=== PATIENT | male | born 1940 | race African-American/Black ===

== ENCOUNTER 2017-08-24 13:28 | Emergency (ER) | payer MEDICARE, SELFPAY | END 2017-08-24 14:29 | disposition home or self-care (01) | PROVIDERS: Emergency Provider Emergency Medicine; Family Provider Internal Medicine Adolescent Medicine; Visit Provider Emergency Medicine | DX: S20.211A Contusion of right front wall of thorax, initial encounter (principal); I10 Essential (primary) hypertension; F17.210 Nicotine dependence, cigarettes, uncomplicated; Z79.82 Long term (current) use of aspirin; W01.0XXA Fall on same level from slipping, tripping and stumbling without subsequent striking against object, initial encounter; Y93.01 Activity, walking, marching and hiking; Y92.89 Other specified places as the place of occurrence of the external cause | CPT/HCPCS: 71101; 99282 ==

== ENCOUNTER 2018-06-27 17:22 | Observation (INO) ==
[2018-06-27 18:15] LABS: Microscopic, Urine URINE MICROSCOPIC (MICROSCOPIC)
[2018-06-27 18:18] LABS: Appearance,Urine CLEAR (Clear); Bilirubin,Urine Negative (Negative); Blood, Urine Negative (Negative); Color,Urine YELLOW (Yellow); Glucose,Urine (UA) Negative (Negative); Ketones,Urine Negative (Negative); Leukocyte Esterase,Urine Negative (Negative); Protein,Urine Negative (Negative); Urobilinogen,Urine 0.2 EU/dl (0.2)
[2018-06-27 18:38] LABS: Bacteria,Urine 1+ /lpf; RBC,Urine Occasional #/hpf (0-3)
--- NOTE | 2018-06-27 19:07 | Emergency Department Note ---
ED Disposition Clinical Impression: Left inguinal hernia Cellulitis Qualifiers: Site of cellulitis: extremity Site of cellulitis of extremity: upper extremity Laterality: right Qualified Code(s): L03.113 - Cellulitis of right upper limb Disposition: Admitted as Observation Condition on Discharge: Fair Instructions: Cellulitis Referrals: Wilfred Rodriguez MD [Primary Care Provider] - Time of Disposition: 20:57 - Critical Care Critical Care Time: No Attestation: On 06/27/18, the high probability of a clinically significant, sudden or life threatening deterioration of the following system(s) required my full and direct attention, intervention and personal management. The time I documented below is in addition to time spent performing reported procedures but includes the following listed in this critical care notation. Medical Decision Making - Medical Records Medical records reviewed: Yes: I reviewed the patient's medical records. - Sergio Inquiry Pt receiving controlled substance: No Sergio was queried for this patient: No Vital Signs: 06/27/18 17:33 06/27/18 18:42 06/27/18 19:30 Temperature 98.6 F 97.5 F L Temperature Source Oral Oral Pulse Rate [Left Radial] 88 80 78 Respiratory Rate 18 18 18 Blood Pressure [Left Arm] 156/85 H 119/55 L 172/88 H Blood Pressure Mean [Left Arm] 108 76 116 Blood Pressure Source [Left Arm] Automatic Cuff Automatic Cuff Automatic Cuff Blood Pressure Position [Left Arm] Supine Sitting Supine 02 Sat by Pulse Oximetry 98 98 99 Oxygen Delivery Method Room Air Room Air Room Air 06/27/18 20:00 Temperature Temperature Source Pulse Rate [Left Radial] 74 Respiratory Rate 18 Blood Pressure [Left Arm] 175/81 H Blood Pressure Mean [Left Arm] 112 Blood Pressure Source [Left Arm] Automatic Cuff Blood Pressure Position [Left Arm] Supine 02 Sat by Pulse Oximetry 99 Oxygen Delivery Method Room Air - Lab Data Lab results reviewed: Yes: I reviewed the patient's lab results. Lab Results 06/27/18 18:05: Urine Color Yellow, Urine Appearance Clear, Urine pH 7.0, Ur Specific [place] 1.020, Urine Protein Negative, Urine Glucose (UA) Negative, Urine Ketones Negative, Urine Blood Negative, Urine Nitrate Negative, Urine Bilirubin Negative, Urine Urobilinogen 0.2, Ur Leukocyte Esterase Negative, Urine RBC Occasional, Urine WBC 5-10, Ur Squamous Epith Cells 3-5, Urine Bacteria 1+ 06/27/18 20:05: WBC 7.5, RBC 4.10 L, Hgb 13.1 L, Hct 40.4 L, MCV 98.5 H, MCH 31.8 H, MCHC 32.3, RDW 13.5, Plt Count 360, MPV 7.1 L, Neut % (Auto) 61.3, Lymph % (Auto) 21.0, [place] % (Auto) 5.4, Eos % (Auto) 11.8, Baso % (Auto) 0.4, Neut # (Auto) 4.6, Lymph # (Auto) 1.6, [place] # (Auto) 0.4, Eos # (Auto) 0.9 H, Baso # (Auto) 0.0 06/27/18 20:05: Sodium 134 L, Potassium 3.4 L, Chloride 98, Carbon Dioxide 30, Anion Gap 9.4, BUN 10 D, Creatinine 1.12, Estimated Creat Clear 82, Estimated GFR 63, Est GFR ( Amer) 77, Glucose 100, Calcium 8.8, Total Bilirubin 0.5, AST 15, ALT 12, Alkaline Phosphatase 114, Total Protein 9.4 H, Albumin 3.4, Globulin 6.0 H, Albumin/Globulin Ratio 0.6 L 06/27/18 20:05: Lactate 1.2 Result diagrams: 06/27/18 20:05 06/27/18 20:05 Orders (Tests/Meds): ED MEDICATIONS Generic Name Dose Route Start Last Admin Trade Name Freq PRN Reason Stop Dose Admin Sodium Chloride 1,000 mls @ 999 mls/hr 06/27/18 20:15 06/27/18 20:35 Sod Chlor 0.9% 1000ml Bag IV 06/27/18 21:15 999 mls/hr .[id number] GAYLE Administration ORDERS Category Date Time Status CT abdomen pelvis wo con Stat Cat Scan 06/27/18 19:05 Taken CRP [C-Reactive Protein] Stat Lab 06/27/18 20:46 Ordered Erythrocyte Sedimentation Rate Stat Lab 06/27/18 20:46 Ordered PSA Total+% Free Stat Lab 06/27/18 20:05 Received UA [Urinalysis and Microscopic] Stat Lab 06/27/18 18:05 Ordered Blood Culture Stat Micro 06/27/18 20:12 Ordered General Adult HPI - General Chief complaint: PAIN Stated complaint: Swelling in prostrate area Time Seen by Provider: 06/27/18 18:50 Mode of Arrival: Ambulatory Limitations: Physical Limitations Description of Symptoms (Recalled from ER Triage Doc. by RN): Patients reports that his testicles and penis are swollen. He has been unable to completely empty his bladder for several weeks. 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 Bender until he and then a couple of months later saw Dr. Gilliland and has not been back to see Dr. Gilliland since that time. Several months ago he started developing some sores in his right arm and he kept picking at those sores and now he comes in with the right arm in a sling mostly immobile with scabbed areas all the way up and down the arm and swelling of the hand but there is no increased heat. He comes into the hospital this evening because of not being ab le to completely empty his bladder for several weeks and also because he has a lot of swelling around his penis and testicles and he is not sure what is going on there is only surgery in the past was a right knee replacement several years ago and he does have a history of hypertension but on no medicines for it. He does not complain of a great deal of pain but it bothers him because of all the swelling in his groin and it makes it more difficult for him to pass all of his urine Onset (ago): month(s) Location: genitals, right, upper extremity - Related Data Home Medications Medication Instructions Recorded Confirmed Aspirin [Aspir 81] 81 mg PO DAILY 06/26/18 06/27/18 Sulfamethoxazole/Trimethoprim 1 each PO BID 06/27/18 06/27/18 [Bactrim DS tablet] cephALEXin [Keflex 500mg Cap] 500 mg PO Q6H 06/27/18 06/27/18 Allergies Allergy/AdvReac Type Severity Reaction Status Date / Time No Known Allergies Allergy Verified 06/27/18 17:48 [facility] History I have reviewed the patient's past medical history: Yes Laterality Cases: Right: Total Knee Replacement Amputation: No - Social History Smoking Status: Current every day smoker Tobacco Type: cigarettes Alcohol Intake: never ROS Obtained: Yes All systems reviewed & no additional complaints - Genitourinary Male Genitourinary: Reports system reviewed and no additional complaints, except as docu, Reports as per HPI, Reports difficulty urinating, Reports scrotal swelling - Musculoskeletal Musculoskeletal: Reports as per HPI (Patient has complained of swelling and sores on right arm for quite some ti) Physical Exam - General General appearance: alert, in no apparent distress - Head Head exam: atraumatic - ENT ENT exam: Present: normal exam - Neck Neck exam: Present: normal inspection - Respiratory Respiratory exam: Present: normal lung sounds bilaterally - Cardiovascular Cardiovascular exam: Present: regular rate, normal rhythm - Abdominal Exam Abdominal exam: Present: soft - exam: Present: scrotal swelling (Patient has a large nonreducible hernia in the left side of his scrotum it does not appear to be strangulated but certainly is not reducible), other - Extremities Exam Extremities exam: Present: other (He has several scabbed areas on his right arm and he has marked decrease movement in the right arm) - Neurological Exam Neurological exam: Present: alert, oriented X3
[2018-06-27 20:23] LABS: Basophils % 0.4 % (0.1-2.0); Eosinophils # 0.9 K/mm3 (0.0-0.4); Eosinophils % 11.8 % (0.1-12.0); Hematocrit 40.4 % (42.0-52.0); Hemoglobin 13.1 g/dL (14.1-18.0); Lymphocytes # 1.6 K/mm3 (0.7-4.5); Mean Corpuscular HGB Conc 32.3 g/dL (31.8-35.4); Mean Corpuscular Hemoglobin 31.8 pg (27.0-31.2); Mean Corpuscular Volume 98.5 fl (80-94); Mean Platelet Volume 7.1 fl (7.4-10.4); Monocytes # 0.4 K/mm3 (0.1-1.0); Monocytes % 5.4 % (1.7-9.3); Neutrophils # 4.6 K/mm3 (1.8-7.8); Neutrophils % 61.3 % (37.0-80.0); Platelet Count 360 K/mm3 (142-424); Red Cell Distribution Width 13.5 % (11.5-17.5); White Blood Count 7.5 K/mm3 (4.8-10.8)
[2018-06-27 20:47] LABS: Albumin Level 3.4 gm/dL (3.4-5.0); Albumin/Globulin Ratio 0.6 (1.1-1.8); Anion Gap 9.4 mEq/L (5-15); Bilirubin,Total 0.5 mg/dL (0.2-1.0); Calcium 8.8 mg/dL (8.5-10.1); Potassium 3.4 mmoL/L (3.5-5.1); Total Protein,Serum 9.4 gm/dL (6.4-8.2)
[2018-06-28 07:03] LABS: Basophils % 0.2 % (0.1-2.0); Eosinophils # 0.1 K/mm3 (0.0-0.4); Eosinophils % 1.4 % (0.1-12.0); Hematocrit 36.5 % (42.0-52.0); Hemoglobin 11.8 g/dL (14.1-18.0); Lymphocytes # 0.5 K/mm3 (0.7-4.5); Lymphocytes % 12.8 K/mm3 (10-50); Mean Corpuscular HGB Conc 32.3 g/dL (31.8-35.4); Mean Corpuscular Hemoglobin 31.6 pg (27.0-31.2); Mean Corpuscular Volume 97.8 fl (80-94); Mean Platelet Volume 7.1 fl (7.4-10.4); Monocytes # 0.1 K/mm3 (0.1-1.0); Monocytes % 2.4 % (1.7-9.3); Neutrophils # 3.3 K/mm3 (1.8-7.8); Neutrophils % 83.2 % (37.0-80.0); Platelet Count 310 K/mm3 (142-424); Red Blood Count 3.73 M/mm3 (4.60-6.20); Red Cell Distribution Width 13.5 % (11.5-17.5)
[2018-06-28 07:30] LABS: Albumin Level 2.8 gm/dL (3.4-5.0); Albumin/Globulin Ratio 0.5 (1.1-1.8); Anion Gap 13.7 mEq/L (5-15); Bilirubin,Total 0.5 mg/dL (0.2-1.0); Calcium 8.3 mg/dL (8.5-10.1); Globulin 5.3 gm/dl (1.3-3.2); Potassium 3.7 mmoL/L (3.5-5.1); Total Protein,Serum 8.1 gm/dL (6.4-8.2)
--- NOTE | 2018-06-28 09:02 | Pharmacy Consult Notes ---
[facility] Pharmacy VTE Monitoring - Patient Demographics Admission date: 06/28/18 Report Date: 06/28/18 Time: 09:02 Allergies/Adverse Reactions: Patient Allergies No Known Allergies Allergy (Verified 06/27/18 17:48) Height: 1.83 m Weight: 91.739 kg Patient Problems: Current Active Problems Cellulitis (Acute) Left inguinal hernia (Acute) - VTE Risk Labs: VTE Related Lab Results Hgb 11.8 g/dL (14.1-18.0) L 06/28/18 06:35 Hct 36.5 % (42.0-52.0) L 06/28/18 06:35 Plt Count 310 K/mm3 (142-424) 06/28/18 06:35 BUN 10 mg/dL (7-18) 06/28/18 06:35 Creatinine 0.94 mg/dL (0.70-1.30) 06/28/18 06:35 Estimated Creat Clear 79 mL/min (0-300) 06/28/18 06:35 Was VTE Risk Assessment Performed: Yes VTE Score: 1 VTE Risk Level: Very Low Risk Clinical Trial Participant: No - Prophylaxis VTE Prophylaxis Ordered?: Yes Types of VTE Prophylaxis: TEDS Knee High
--- NOTE | 2018-06-28 15:37 | H&P/Discharge Summary ---
General - General Admission date:: 06/27/18 Discharge date: 06/28/18 *Admission Date: 06/28/18 *Chief complaint: scrotal swelling, right arm swelling *History of present illness: 78 year old male with no specific medical history presented to the ED for evaluation of scrotal swelling and right arm cellulitis. Patient reports ongoing issues with "sores" on bilateral upper extremities from scratching and bumping his arms against objects while working. He was seen in the [facility] earlier that week and placed on Keflex and Bactrim for cellulitis. Reports swelling has improved a little. Mild wrist pain, no shoulder or upper arm pain. X-ray obtained at [facility] was negative. Patient further reports long history of scrotal swelling that has increased over the last several years. Denies any pain. Has intermittent issues with difficulty urinating and "dribbling." No dysuria, hematuria or noctural. No fevers. No GI issues. In the ED, CBC, CMP and UA were normal. Patient was noted to have a large inguinal hernia verses questionable cellulitis/abscess. He was admitted for further evaluation. [facility] History I have reviewed the patient's past medical history: Yes Medical History: Denies:: Cancer, Diabetes Mellitus Type 1, Diabetes Mellitus Type 2, MRSA Laterality Cases: Right: Total Knee Replacement Amputation: No Fractures: No - *Social History Educational Level: Attended Grade School Smoking Status: Current every day smoker Tobacco Type: cigarettes # Packs/Day (cigarettes): 1 Alcohol Intake: never Occupational Status: retired Housing: house - Psychiatric History Expresses thoughts of harming self/others: None Suicide Plan Description: No Plan *Family Hx:: No significant family history Review of Systems - Review of Systems Review of systems:: pertinent systems reviewed and negative unless documented below - *Genitourinary Reports difficulty urinating, Reports scrotal swelling - *Musculoskeletal Reports joint pain, Reports joint swelling Exam Vital signs and Labs for Last 24 Hours: Temp Pulse Resp BP Pulse Ox 98.1 F 79 20 158/87 H 99 06/28/18 08:00 06/28/18 08:00 06/28/18 08:00 06/28/18 08:00 06/28/18 08:00 Laboratory Results - last 24 hr 06/27/18 18:05: Urine Color Yellow, Urine Appearance Clear, Urine pH 7.0, Ur Specific [place] 1.020, Urine Protein Negative, Urine Glucose (UA) Negative, Urine Ketones Negative, Urine Blood Negative, Urine Nitrate Negative, Urine Bilirubin Negative, Urine Urobilinogen 0.2, Ur Leukocyte Esterase Negative, Urine RBC Occasional, Urine WBC 5-10, Ur Squamous Epith Cells 3-5, Urine Bacteria 1+ 06/27/18 20:05: WBC 7.5, RBC 4.10 L, Hgb 13.1 L, Hct 40.4 L, MCV 98.5 H, MCH 31.8 H, MCHC 32.3, RDW 13.5, Plt Count 360, MPV 7.1 L, Neut % (Auto) 61.3, Lymph % (Auto) 21.0, [place] % (Auto) 5.4, Eos % (Auto) 11.8, Baso % (Auto) 0.4, Neut # (Auto) 4.6, Lymph # (Auto) 1.6, [place] # (Auto) 0.4, Eos # (Auto) 0.9 H, Baso # (Auto) 0.0 06/27/18 20:05: Sodium 134 L, Potassium 3.4 L, Chloride 98, Carbon Dioxide 30, Anion Gap 9.4, BUN 10 D, Creatinine 1.12, Estimated Creat Clear 82, Estimated GFR 63, Est GFR ( Amer) 77, Glucose 100, Calcium 8.8, Total Bilirubin 0.5, AST 15, ALT 12, Alkaline Phosphatase 114, Total Protein 9.4 H, Albumin 3.4, Globulin 6.0 H, Albumin/Globulin Ratio 0.6 L 06/27/18 20:05: Lactate 1.2 06/27/18 20:05: ESR 120 H 06/27/18 20:05: C-Reactive Protein 10.9 H 06/28/18 06:35: WBC 4.0 L D, RBC 3.73 L, Hgb 11.8 L, Hct 36.5 L, MCV 97.8 H, MCH 31.6 H, MCHC 32.3, RDW 13.5, Plt Count 310, MPV 7.1 L, Neut % (Auto) 83.2 H, Lymph % (Auto) 12.8, [place] % (Auto) 2.4, Eos % (Auto) 1.4, Baso % (Auto) 0.2, Neut # (Auto) 3.3, Lymph # (Auto) 0.5 L, [place] # (Auto) 0.1, Eos # (Auto) 0.1, Baso # (Auto) 0.0 06/28/18 06:35: Sodium 138, Potassium 3.7, Chloride 103, Carbon Dioxide 25, Anion Gap 13.7, BUN 10, Creatinine 0.94, Estimated Creat Clear 79, Estimated GFR 78, Est GFR ( Amer) 94 D, Glucose 157 H D, Calcium 8.3 L, Magnesium 1.8, Total Bilirubin 0.5, AST 11 L D, ALT 11 L, Alkaline Phosphatase 90, Total Protein 8.1, Albumin 2.8 L D, Globulin 5.3 H, Albumin/Globulin Ratio 0.5 L I & O for Last 24 hours: Intake & Output 06/26/18 06/27/18 06/28/18 06/29/18 11:59 11:59 11:59 11:59 Intake Total 903 / 903 480 / 480 Output Total 1550 / 1550 Balance -647 / -647 479 / 479 Weight 202 lb 4 oz Narrative: Alert and oriented x3. Rate and rhythm regular. Lung sounds clear and equal. Abdomen soft and nontender. Large left sided inguinal hernia. No tenderness, warmth or erythema. BUE with scattered lesions of varies stages of healing/scars. No erythema, drainage or s/s infection. Right wrist/hand with 1+ edema. No neuro deficits. ENT exam unremarkable Hospital Course Hospital Course: Patient was admitted to medical surgical unit. He was noted to have a large inguinal hernia on exam that was also confirmed by CT scan. No evidence of obstruction or strangulation. No s/s of scrotal abscess or cellulitis. Urology consult was cancelled. Leyva catheter was discontinued and he was able to void x1. Bladder scan was performed which showed residual of 110 ML which is unrema rkable. He feels well, is tolerating oral intake and has no acute complaints. Discharge home FU as outpatient with surgery for inguinal hernia. Continue Kelfex for RUE cellulitis with mupirocin ointment BUE. Add flomax for difficulty urinating. See medication reconciliation for complete list. FU with myself in one week. Results Labs on day of discharge: Labs from last 24 hours 10/06/28/18 06/27/18 06:35 06:35 20:05 WBC 4.0 L D RBC 3.73 L Hgb 11.8 L Hct 36.5 L MCV 97.8 H MCH 31.6 H MCHC 32.3 RDW 13.5 Plt Count 310 MPV 7.1 L Neut % (Auto) 83.2 H Lymph % (Auto) 12.8 [place] % (Auto) 2.4 Eos % (Auto) 1.4 Baso % (Auto) 0.2 Neut # (Auto) 3.3 Lymph # (Auto) 0.5 L [place] # (Auto) 0.1 Eos # (Auto) 0.1 Baso # (Auto) 0.0 ESR Sodium 138 Potassium 3.7 Chloride 103 Carbon Dioxide 25 Anion Gap 13.7 BUN 10 Creatinine 0.94 Estimated Creat Clear 79 Estimated GFR 78 Est GFR ( Amer) 94 D Glucose 157 H D Lactate Calcium 8.3 L Magnesium 1.8 Total Bilirubin 0.5 AST 11 L D ALT 11 L Alkaline Phosphatase 90 C-Reactive Protein 10.9 H Total Protein 8.1 Albumin 2.8 L D Globulin 5.3 H Albumin/Globulin Ratio 0.5 L Urine Color Urine Appearance Urine pH Ur Specific [place] Urine Protein Urine Glucose (UA) Urine Ketones Urine Blood Urine Nitrate Urine Bilirubin Urine Urobilinogen Ur Leukocyte Esterase Urine RBC Urine WBC Ur Squamous Epith Cells Urine Bacteria 06/27/18 06/27/18 06/27/18 20:05 20:05 20:05 WBC RBC Hgb Hct MCV MCH MCHC RDW Plt Count MPV Neut % (Auto) Lymph % (Auto) [place] % (Auto) Eos % (Auto) Baso % (Auto) Neut # (Auto) Lymph # (Auto) [place] # (Auto) Eos # (Auto) Baso # (Auto) ESR 120 H Sodium 134 L Potassium 3.4 L Chloride 98 Carbon Dioxide 30 Anion Gap 9.4 BUN 10 D Creatinine 1.12 Estimated Creat Clear 82 Estimated GFR 63 Est GFR ( Amer) 77 Glucose 100 Lactate 1.2 Calcium 8.8 Magnesium Total Bilirubin 0.5 AST 15 ALT 12 Alkaline Phosphatase 114 C-Reactive Protein Total Protein 9.4 H Albumin 3.4 Globulin 6.0 H Albumin/Globulin Ratio 0.6 L Urine Color Urine Appearance Urine pH Ur Specific [place] Urine Protein Urine Glucose (UA) Urine Ketones Urine Blood Urine Nitrate Urine Bilirubin Urine Urobilinogen Ur Leukocyte Esterase Urine RBC Urine WBC Ur Squamous Epith Cells Urine Bacteria 06/27/18 06/27/18 20:05 18:05 WBC 7.5 RBC 4.10 L Hgb 13.1 L Hct 40.4 L MCV 98.5 H MCH 31.8 H MCHC 32.3 RDW 13.5 Plt Count 360 MPV 7.1 L Neut % (Auto) 61.3 Lymph % (Auto) 21.0 [place] % (Auto) 5.4 Eos % (Auto) 11.8 Baso % (Auto) 0.4 Neut # (Auto) 4.6 Lymph # (Auto) 1.6 [place] # (Auto) 0.4 Eos # (Auto) 0.9 H Baso # (Auto) 0.0 ESR Sodium Potassium Chloride Carbon Dioxide Anion Gap BUN Creatinine Estimated Creat Clear Estimated GFR Est GFR ( Amer) Glucose Lactate Calcium Magnesium Total Bilirubin AST ALT Alkaline Phosphatase C-Reactive Protein Total Protein Albumin Globulin Albumin/Globulin Ratio Urine Color Yellow Urine Appearance Clear Urine pH 7.0 Ur Specific [place] 1.020 Urine Protein Negative Urine Glucose (UA) Negative Urine Ketones Negative Urine Blood Negative Urine Nitrate Negative Urine Bilirubin Negative Urine Urobilinogen 0.2 Ur Leukocyte Esterase Negative Urine RBC Occasional Urine WBC 5-10 Ur Squamous Epith Cells 3-5 Urine Bacteria 1+ DS: Diagnosis - Discharge Diagnosis (1) Cellulitis Status: Acute (2) Left inguinal hernia Status: Acute Discharge Medications - Medications for Discharge Home Medication List at Discharge: New Tamsulosin HCl [Flomax 0.4mg capsule] 0.4 mg PO HS #30 cap Aspirin [Aspirin 81mg EC Tab] 81 mg PO DAILY tablet. Mupirocin Calcium [Mupirocin 2% Cream 15gm] 1 applicatio TP TID #1 tube Continue cephALEXin [Keflex 500mg Cap] 500 mg PO Q6H Discontinued Sulfamethoxazole/Trimethoprim [Bactrim DS tablet] 1 each PO BID Aspirin [Aspirin 325mg Tab] 325 mg PO DAILY Disposition Disposition: Home, Self-Care
== END 2018-06-28 13:50 | disposition home or self-care (01) ==
LOC: ER 17:22 → 2ND 17:22
PROVIDERS: ADMIT Emergency Medicine; ATTEND Internal Medicine Adolescent Medicine
CPT/HCPCS: 36415; 74176; 80053; 81001; 83605; 83735; 84153; 84154; 85025; 85651; 86140; 87040; 96365; 96366; 96375; 99285; G0378

== ENCOUNTER → 2018-07-04 15:09 | Outpatient (CLI) | payer MEDICARE, SELFPAY ==
[2018-07-04 15:12] LABS: Microscopic, Urine URINE MICROSCOPIC (MICROSCOPIC)
[2018-07-04 15:35] LABS: Appearance,Urine CLEAR (Clear); Bilirubin,Urine Negative (Negative); Blood, Urine Negative (Negative); Color,Urine YELLOW (Yellow); Glucose,Urine (UA) Negative (Negative); Ketones,Urine Negative (Negative); Leukocyte Esterase,Urine TRACE (Negative); Nitrate,Urine Negative (Negative); Protein,Urine Negative (Negative); Specific Gravity, Urine >= 1.030 (1.005-1.030)
[2018-07-04 15:57] LABS: Bacteria,Urine Trace /lpf; Squamous Epithelial Cell,Urine Occasional #/hpf (0-5)
[2018-07-04 16:02] LABS: Basophils % 0.7 % (0.1-2.0); Eosinophils # 1.2 K/mm3 (0.0-0.4); Eosinophils % 24.6 % (0.1-12.0); Hematocrit 36.2 % (42.0-52.0); Hemoglobin 11.4 g/dL (14.1-18.0); Lymphocytes # 1.5 K/mm3 (0.7-4.5); Lymphocytes % 31.9 K/mm3 (10-50); Mean Corpuscular HGB Conc 31.5 g/dL (31.8-35.4); Mean Corpuscular Hemoglobin 31.5 pg (27.0-31.2); Mean Platelet Volume 6.8 fl (7.4-10.4); Monocytes # 0.3 K/mm3 (0.1-1.0); Monocytes % 5.2 % (1.7-9.3); Neutrophils # 1.8 K/mm3 (1.8-7.8); Neutrophils % 37.6 % (37.0-80.0); Platelet Count 421 K/mm3 (142-424); Red Blood Count 3.62 M/mm3 (4.60-6.20); Red Cell Distribution Width 13.7 % (11.5-17.5); White Blood Count 4.8 K/mm3 (4.8-10.8)
[2018-07-04 16:53] LABS: Anion Gap 12.4 mEq/L (5-15); Blood Urea Nitrogen 8 mg/dL (7-18); Calcium 8.6 mg/dL (8.5-10.1); Carbon Dioxide 27 mmol/L (21.0-32.0); Chloride 103 mmol/L (98-107); Creatinine,Serum 1.04 mg/dL (0.70-1.30); Estimated Glomerular Filt Rate 69 ml/min (>60); GFR (African American) 84 ML/MIN (>60); Glucose 114 mg/dL (74-106); Potassium 4.4 mmoL/L (3.5-5.1); Sodium 138 mmol/L (136-145)
== END ==
PROVIDERS: Family Provider Internal Medicine Adolescent Medicine; PCP Internal Medicine Adolescent Medicine; Visit Provider Surgery
DX: K40.90 Unilateral inguinal hernia, without obstruction or gangrene, not specified as recurrent (principal); L03.115 Cellulitis of right lower limb
CPT/HCPCS: 36415; 80048; 81001; 85025

== ENCOUNTER 2019-04-26 16:39 | Observation (INO) ==
--- NOTE | 2019-04-26 17:18 | Emergency Department Note ---
ED Disposition Clinical Impression: Cellulitis of leg, right Disposition: Admitted as Observation Condition on Discharge: Good Referrals: Wilfred Rodriguez MD [Primary Care Provider] - Time of Disposition: 18:35 - Critical Care Critical Care Time: No Attestation: On 04/26/19, the high probability of a clinically significant, sudden or life threatening deterioration of the following system(s) required my full and direct attention, intervention and personal management. The time I documented below is in addition to time spent performing reported procedures but includes the fo juanwing listed in this critical care notation. Medical Decision Making - Medical Records Medical records reviewed: Yes: I reviewed the patient's medical records. - Sergio Inquiry Pt receiving controlled substance: No Sergio was queried for this patient: No Vital Signs: 04/26/19 16:39 Temperature 100.5 F H Temperature Source Oral Pulse Rate [Left Radial] 97 H Respiratory Rate 20 Blood Pressure [Right Arm] 129/65 Blood Pressure Mean [Right Arm] 86 Blood Pressure Source [Right Arm] Automatic Cuff Blood Pressure Position [Right Arm] Sitting 02 Sat by Pulse Oximetry 100 - Lab Data Lab results reviewed: Yes: I reviewed the patient's lab results. Lab Results 04/26/19 17:30: WBC 9.7, RBC 4.25 L, Hgb 13.2 L, Hct 41.3 L, MCV 97.1 H, MCH 31.1, MCHC 32.0, RDW 13.7, Plt Count 373, MPV 6.8 L, Neut % (Auto) 86.9 H, Lymph % (Auto) 9.0 L, [place] % (Auto) 3.9, Eos % (Auto) 0.1, Baso % (Auto) 0.1, Neut # (Auto) 8.5 H, Lymph # (Auto) 0.9, [place] # (Auto) 0.4, Eos # (Auto) 0.0, Baso # (Auto) 0.0, Total Counted 100, Neutrophils % (Manual) 90 H, Lymphocytes % (Manual) 8 L, Monocytes % (Manual) 2, Platelet Estimate Normal, RBC Morphology Normal 04/26/19 17:30: Sodium 133 L, Potassium 3.2 L, Chloride 97 L, Carbon Dioxide 25, Anion Gap 14.2, BUN 11, Creatinine 1.08, Estimated Creat Clear 83, Estimated GFR 66, Est GFR ( Amer) 80, Glucose 122 H, Calcium 8.6, Total Bilirubin 1.0, AST 12 L, ALT 8 L, Alkaline Phosphatase 86, Total Protein 7.8, Albumin 3.1 L, Globulin 4.7 H, Albumin/Globulin Ratio 0.7 L 04/26/19 17:30: Lactate 1.2 Result diagrams: 04/26/19 17:30 04/26/19 17:30 Orders (Tests/Meds): ED MEDICATIONS Generic Name Dose Route Start Last Admin Trade Name Freq PRN Reason Stop Dose Admin Ceftriaxone Sodium 1 gm/ 50 mls @ 100 mls/hr 04/26/19 17:45 04/26/19 17:43 Sodium Chloride IV 05/10/19 17:44 100 mls/hr Q24H GAYLE Administration Protocol Clindamycin Phosphate 900 mg/ 106 mls @ 100 mls/hr 04/26/19 17:34 04/26/19 17:43 Sodium Chloride IV 04/26/19 18:37 100 mls/hr ONCE ONE Administration Protocol Discontinued Medications Generic Name Dose Route Start Last Admin Trade Name Freq PRN Reason Stop Dose Admin Acetaminophen 1,000 mg 04/26/19 16:47 04/26/19 17:03 Tylenol 500mg Tablet PO 04/26/19 16:48 1,000 mg ONCE ONE Administration ORDERS Category Date Time Status CXR 2 view (NOT portable) [XR chest 2V] Stat Exams 04/26/19 17:18 Taken UA [Urinalysis and Microscopic] Stat Lab 04/26/19 17:18 Ordered Blood Culture Stat Micro 04/26/19 16:45 Received - Physician Consults Physician Consulted: reg Time: 18:35 Reason -: Admission General Adult HPI - General Chief complaint: PAIN Stated complaint: PAIN Time Seen by Provider: 04/26/19 16:45 Mode of Arrival: EMS Limitations: No Limitations Description of Symptoms (Recalled from ER Triage Doc. by RN): PAIN IN LOWER EXTREMITY, REDNESS AND SWELLING IN LEFT FOOT, PAIN IN BILATERAL LOWER EXTREMITIES - History of Present Illness HPI narrative: pain reported in right leg, dolor and swelling are in left leg - Related Data Home Medications Medication Instructions Recorded Confirmed Aspirin [Aspirin 81mg EC Tab] 81 mg PO DAILY 07/26/18 04/26/19 Tamsulosin HCl [Flomax 0.4mg 0.4 mg PO HS 11/15/18 08/16/19 capsule] Allergies Allergy/AdvReac Type Severity Reaction Status Date / Time No Known Allergies Allergy Verified 08/08/18 10:00 [facility] History - Hepatitis A Screen Drug use history?: No High risk sexual behaviors?: No History of sexually transmitted infection?: No Currently employed?: No Childcare worker?: No Do you have indoor plumbing?: Yes Do you have electricity?: Yes Attestation statement:: This patient has been screened for Hepatitis A risk factors. I have reviewed the patient's past medical history: Yes Medical History: Denies:: Cancer, Diabetes Mellitus Type 1, Diabetes Mellitus Type 2, Internal Pacemaker, MRSA, Seizures Other Medical History: Denies: Blood Transfusion Reaction Other Surgeries: No: Pacemaker Amputation: No Fractures: No - Social History Smoking Status: Current every day smoker Tobacco Type: cigarettes # Packs/Day (cigarettes): 1 Alcohol Intake: never Occupational Status: retired Housing: house Household Members: family Family Hx:: No significant family history ROS Obtained: Yes All systems reviewed & no additional complaints, Yes unobtainable due to mental condition, Yes other (febrile) - Constitutional Constitutional: Denies body ache, Reports chills, Reports fever(s), Denies headache(s) - ENT Ears, Nose, Mouth, and Throat: Reports system reviewed and no additional complaints, except as docu - Cardiovascular Cardiovascular: Reports system reviewed and no additional complaints, except as docu - Respiratory Respiratory: Yes system reviewed and no additional complaints, except as docu - Gastrointestinal Gastrointestingal: Reports: abdominal pain, bright red blood in stools. Denies: diarrhea, vomiting - Musculoskeletal Musculoskeletal: Reports system reviewed and no additional complaints, except as docu, Reports joint swelling, Reports limited range of motion, Reports muscle cramps, Reports muscle weakness, Reports muscle aches, Reports other (left leg) - Integumentary/Breasts Skin/Breast: Reports system reviewed and no additional complaints, except as docu - Neurologic Neurologic: Reports system reviewed and no additional complaints, except as docu - Endocrine Endocrine: Reports system reviewed and no additional complaints, except as docu - Allergic/Immunologic Allergic/Immunologic: Reports system reviewed and no additional complaints, except as docu Physical Exam - General General appearance: alert, in no apparent distress - Head Head exam: atraumatic - ENT ENT exam: Present: normal exam, normal oropharynx, mucous membranes moist, TM's normal bilaterally, normal external ear exam - Neck Neck exam: Present: normal inspection, full ROM, trachea midline. Absent: meningismus, lymphadenopathy - Chest Chest inspection: Present: normal inspection, symmetric chest wall rise. Absent: tenderness - Respiratory Respiratory exam: Present: normal lung sounds bilaterally - Cardiovascular Cardiovascular exam: Present: regular rate, normal rhythm. Absent: JVD - Abdominal Exam Abdominal exam: Present: soft, normal bowel sounds. Absent: distention, tenderness, guarding - Extremities Exam Extremities exam: Present: tenderness, other (diffuse swelling/dolor). Absent: normal inspection - Neurological Exam Neurological exam: Present: alert, oriented X3, other (he seems globally weak) - Psychiatric Psychiatric exam: Present: normal affect - Skin Skin exam: Present: warm, dry, erythema
[2019-04-26 17:48] LABS: Basophils % 0.1 % (0.1-2.0); Eosinophils % 0.1 % (0.1-12.0); Hematocrit 41.3 % (42.0-52.0); Hemoglobin 13.2 g/dL (14.1-18.0); Lymphocytes # 0.9 K/mm3 (0.7-4.5); Mean Corpuscular Volume 97.1 fl (80-94); Mean Platelet Volume 6.8 fl (7.4-10.4); Monocytes # 0.4 K/mm3 (0.1-1.0); Monocytes % 3.9 % (1.7-9.3); Neutrophils # 8.5 K/mm3 (1.8-7.8); Neutrophils % 86.9 % (37.0-80.0); Platelet Count 373 K/mm3 (142-424); Red Blood Count 4.25 M/mm3 (4.60-6.20); Red Cell Distribution Width 13.7 % (11.5-17.5); White Blood Count 9.7 K/mm3 (4.8-10.8)
[2019-04-26 17:52] LABS: Albumin Level 3.1 gm/dL (3.4-5.0); Albumin/Globulin Ratio 0.7 (1.1-1.8); Anion Gap 14.2 mEq/L (5-15); Calcium 8.6 mg/dL (8.5-10.1); Globulin 4.7 gm/dl (1.3-3.2); Total Protein,Serum 7.8 gm/dL (6.4-8.2)
[2019-04-26 18:06] LABS: Lymphocytes % 8 % (10-50); Monocytes % 2 % (2-9); Neutrophils % 90 % (42-76); Total Cells Counted 100
[2019-04-26 18:07] LABS: RBC Morphology Normal
[2019-04-27 06:21] LABS: Eosinophils # 0.1 K/mm3 (0.0-0.4); Monocytes # 0.7 K/mm3 (0.1-1.0); Red Cell Distribution Width 13.8 % (11.5-17.5)
[2019-04-27 06:45] LABS: Basophils % 0.2 % (0.1-2.0); Eosinophils % 0.7 % (0.1-12.0); Hematocrit 35.7 % (42.0-52.0); Lymphocytes # 1.3 K/mm3 (0.7-4.5); Lymphocytes % 10.5 % (10-50); Mean Corpuscular HGB Conc 33.1 g/dL (31.8-35.4); Mean Corpuscular Volume 97.6 fl (80-94); Mean Platelet Volume 7.6 fl (7.4-10.4); Monocytes % 5.7 % (1.7-9.3); Neutrophils # 9.9 K/mm3 (1.8-7.8); Platelet Count 313 K/mm3 (142-424); Red Blood Count 3.66 M/mm3 (4.60-6.20); White Blood Count 11.9 K/mm3 (4.8-10.8)
[2019-04-27 06:50] LABS: Anion Gap 14.7 mEq/L (5-15)
[2019-04-27 06:51] LABS: Hemoglobin 11.8 g/dL (14.1-18.0)
--- NOTE | 2019-04-27 07:44 | History & Physical Report ---
*Admission Date: 04/26/19 *Chief complaint: Left leg swelling *History of present illness: 78-year-old black male with history of poor circulation and recurrent cellulitis in the past who otherwise has enjoyed good functional status who came to the emergency department with left leg heat and swelling. He has a history of work- related chronic skin wounds in the left anterior faust but these have not changed but has noticed that his left calf and faust have been swollen and hot. In the emergency department Doppler testing was negative for DVT but he was noted to have a cellulitis in this leg and was admitted to hospital for IV antibiotics given his multiple comorbid conditions. [facility] History I have reviewed the patient's past medical history: Yes Medical History: Denies:: Cancer, Diabetes Mellitus Type 1, Diabetes Mellitus Type 2, Internal Pacemaker, MRSA, Seizures *Have you ever received a pneumonia vaccine?: No *Have you received a flu vaccine this season?: No Other Medical History: Denies: Blood Transfusion Reaction Laterality Cases: Right: Arthroscopy Knee Other Surgeries: Yes: Hernia Repair (UMBILICAL). No: Pacemaker Amputation: No Fractures: No - *Social History Educational Level: Completed Grade School Smoking Status: Current some day smoker Tobacco Type: cigarettes # Packs/Day (cigarettes): 1 Alcohol Intake: never *Occupational Status:: retired Housing: house Household Members: none *Travel in the last 8 weeks: None - Psychiatric History Expresses thoughts of harming self/others: None Suicide Plan Description: No Plan Family Hx:: No significant family history Review of Systems - Review of Systems Review of systems:: pertinent systems reviewed and negative unless documented below - *Neurologic Denies headache(s) Meds Home Medications Medication Instructions Recorded Confirmed Type Aspirin [Aspirin 81mg EC Tab] 81 mg PO DAILY 07/26/18 04/26/19 History Tamsulosin HCl [Flomax 0.4mg 0.4 mg PO HS 07/26/18 04/26/19 History capsule] Allergies Allergy/AdvReac Type Severity Reaction Status Date / Time No Known Allergies Allergy Verified 08/08/18 10:00 Exam Vital signs and Labs for Last 24 Hours: Temp Pulse Resp BP Pulse Ox 99.9 F H 94 H 18 129/54 L 96 04/27/19 04:00 04/27/19 04:00 04/27/19 04:00 04/27/19 04:00 04/27/19 04:00 Laboratory Results - last 24 hr 04/26/19 17:30: WBC 9.7, RBC 4.25 L, Hgb 13.2 L, Hct 41.3 L, MCV 97.1 H, MCH 31.1, MCHC 32.0, RDW 13.7, Plt Count 373, MPV 6.8 L, Neut % (Auto) 86.9 H, Lymph % (Auto) 9.0 L, [place] % (Auto) 3.9, Eos % (Auto) 0.1, Baso % (Auto) 0.1, Neut # (Auto) 8.5 H, Lymph # (Auto) 0.9, [place] # (Auto) 0.4, Eos # (Auto) 0.0, Baso # (Auto) 0.0, Total Counted 100, Neutrophils % (Manual) 90 H, Lymphocytes % (Manual) 8 L, Monocytes % (Manual) 2, Platelet Estimate Normal, RBC Morphology Normal 04/26/19 17:30: Sodium 133 L, Potassium 3.2 L, Chloride 97 L, Carbon Dioxide 25, Anion Gap 14.2, BUN 11, Creatinine 1.08, Estimated Creat Clear 83, Estimated GFR 66, Est GFR ( Amer) 80, Glucose 122 H, Calcium 8.6, Total Bilirubin 1.0, AST 12 L, ALT 8 L, Alkaline Phosphatase 86, Total Protein 7.8, Albumin 3.1 L, Globulin 4.7 H, Albumin/Globulin Ratio 0.7 L 04/26/19 17:30: Lactate 1.2 04/27/19 05:20: WBC 11.9 H, RBC 3.66 L, Hgb 11.8 L D, Hct 35.7 L, MCV 97.6 H, MCH 32.3 H, MCHC 33.1, RDW 13.8, Plt Count 313, MPV 7.6, Neut % (Auto) 83.0 H, Lymph % (Auto) 10.5, [place] % (Auto) 5.7, Eos % (Auto) 0.7, Baso % (Auto) 0.2, Neut # (Auto) 9.9 H, Lymph # (Auto) 1.3, [place] # (Auto) 0.7, Eos # (Auto) 0.1, Baso # (Auto) 0.0 04/27/19 05:20: Sodium 135 L, Potassium 3.7, Chloride 100, Carbon Dioxide 24, Anion Gap 14.7, BUN 12, Creatinine 0.88, Estimated Creat Clear 79, Estimated GFR 84, Est GFR ( Amer) 101 D, Glucose 109 H, Calcium 8.0 L I & O for Last 24 hours: Intake & Output 04/24/19 04/25/19 04/26/19 04/27/19 11:59 11:59 11:59 11:59 Intake Total 1342 / 1342 Output Total 240 / 240 Balance 1102 / 1102 Weight 201 lb 8 oz Narrative: Patient is pleasant, talkative, oriented x3. In good spirits this morning. No JVD. Oropharynx clear. Lungs have good air movement. Heart rate regular without murmurs. Extremities show normal pulses in the hands, capillary refill is good. Legs show evidence of some old scarring especially on the left leg with a flesh- colored scar in the left lateral calf. The leg is warm and swollen diffusely from the knee down on the left side, but there is no cord formation. Perfusion otherwise is good. Right side is normal. Abdomen soft and nontender. Assessment and Plan (1) Cellulitis Current visit: No Status: Acute Category: Medical Code(s): L03.90 - Cellulitis, unspecified Agree with admission for IV antibiotics. Probable discharge tomorrow on p.o. antibiotics if clinically improved and blood cultures are negative.
--- NOTE | 2019-04-27 10:18 | Pharmacy Consult Notes ---
[facility] Pharmacy VTE Monitoring - Patient Demographics Admission date: 04/26/19 Report Date: 04/27/19 Time: 10:18 Allergies/Adverse Reactions: Patient Allergies No Known Allergies Allergy (Verified 08/08/18 10:00) Height: 1.83 m Weight: 91.399 kg Patient Problems: Current Active Problems Cellulitis of leg, right (Acute) - VTE Risk Labs: VTE Related Lab Results Hgb 11.8 g/dL (14.1-18.0) L D 04/27/19 05:20 Hct 35.7 % (42.0-52.0) L 04/27/19 05:20 Plt Count 313 K/mm3 (142-424) 04/27/19 05:20 BUN 12 mg/dL (7-18) 04/27/19 05:20 Creatinine 0.88 mg/dL (0.70-1.30) 04/27/19 05:20 Estimated Creat Clear 79 mL/min (50-200) 04/27/19 05:20 Was VTE Risk Assessment Performed: Yes VTE Score: 5 VTE Risk Level: Low Risk - Prophylaxis VTE Prophylaxis Ordered?: Yes Types of VTE Prophylaxis: TEDS Knee High Location of Applied Device: Bilateral Lower Extremeties - VTE Diagnosis Confirmed Treatment or plan recommended: Continue Current Treatment
[2019-04-27 23:50] LABS: Microscopic, Urine URINE MICROSCOPIC (MICROSCOPIC)
[2019-04-27 23:51] LABS: Appearance,Urine CLEAR (Clear); Bilirubin,Urine Negative (Negative); Blood, Urine TRACE-L (Negative); Color,Urine YELLOW (Yellow); Glucose,Urine (UA) Negative (Negative); Ketones,Urine Negative (Negative); Leukocyte Esterase,Urine Negative (Negative); Protein,Urine Negative (Negative); Specific Gravity, Urine 1.015 (1.005-1.030)
[2019-04-28 06:28] LABS: Basophils % 0.2 % (0.1-2.0); Eosinophils # 0.5 K/mm3 (0.0-0.4); Hemoglobin 10.7 g/dL (14.1-18.0); Lymphocytes # 1.4 K/mm3 (0.7-4.5); Lymphocytes % 13.6 % (10-50); Mean Corpuscular HGB Conc 32.5 g/dL (31.8-35.4); Monocytes # 0.6 K/mm3 (0.1-1.0); Monocytes % 5.4 % (1.7-9.3); Neutrophils # 7.7 K/mm3 (1.8-7.8); Neutrophils % 75.8 % (37.0-80.0); Platelet Count 257 K/mm3 (142-424); Red Blood Count 3.34 M/mm3 (4.60-6.20); Red Cell Distribution Width 13.9 % (11.5-17.5); White Blood Count 10.1 K/mm3 (4.8-10.8)
[2019-04-28 06:37] LABS: Calcium 7.7 mg/dL (8.5-10.1)
--- NOTE | 2019-04-28 07:42 | Progress Note ---
Internal Medicine - PN: Subj *Date: 04/28/19 *Time: 07:40 Interval history: Patient feels better, notes that his leg pain is dramatically better, denies complaints of cough, shortness of air or chest pain. Eating breakfast vigorously. Exam Vital signs and Labs for Last 24 Hours: Temp Pulse Resp BP Pulse Ox 99.6 F 70 18 115/58 L 100 04/28/19 04:00 04/28/19 04:00 04/28/19 04:00 04/28/19 04:00 04/28/19 04:00 Laboratory Results - last 24 hr 04/27/19 23:40: Urine Color Yellow, Urine Appearance Clear, Urine pH 6.0, Ur Specific [place] 1.015, Urine Protein Negative, Urine Glucose (UA) Negative, Urine Ketones Negative, Urine Blood Trace-l, Urine Nitrate Negative, Urine Bilirubin Negative, Urine Urobilinogen 1.0, Ur Leukocyte Esterase Negative, Urine RBC 3-5, Urine WBC 5-10, Ur Squamous Epith Cells 3-5 04/28/19 06:08: WBC 10.1, RBC 3.34 L, Hgb 10.7 L, Hct 33.0 L, MCV 99.0 H, MCH 32.1 H, MCHC 32.5, RDW 13.9, Plt Count 257, MPV 7.0 L, Neut % (Auto) 75.8, Lymph % (Auto) 13.6, [place] % (Auto) 5.4, Eos % (Auto) 5.0, Baso % (Auto) 0.2, Neut # (Auto) 7.7, Lymph # (Auto) 1.4, [place] # (Auto) 0.6, Eos # (Auto) 0.5 H, Baso # (Auto) 0.0 04/28/19 06:08: Sodium 138, Potassium 3.0 L, Chloride 105, Carbon Dioxide 25, Anion Gap 11.0, BUN 11, Creatinine 0.98, Estimated Creat Clear 81, Estimated GFR 74, Est GFR ( Amer) 90, Glucose 129 H, Calcium 7.7 L I & O for Last 24 hours: Intake & Output 04/25/19 04/26/19 04/27/19 04/28/19 11:59 11:59 11:59 11:59 Intake Total 1702 / 1702 4143 / 4143 Output Total 240 / 240 575 / 575 Balance 1462 / 1462 3568 / 3568 Weight 201 lb 8 oz 207 lb 4 oz Narrative: Alert, oriented, no distress. Left leg is less warm, still minimally swollen compared to the right leg but no skin breakdown or significant redness. Good distal pulses. Abdomen soft. Heart rate regular. Lungs have good air movement and are clear bilaterally. Oropharynx clear and no JVD. neurologically intact. Assessment and Plan (1) Cellulitis Current visit: No Status: Acute Category: Medical Code(s): L03.90 - Cellulitis, unspecified Clinically improved. Await blood culture final reports (2) Hypokalemia Current visit: Yes Status: Acute Category: Medical Code(s): E87.6 - Hypokalemia Possible dietary issues. Replace orally and check labs tomorrow (3) Hyponatremia Current visit: Yes Status: Acute Category: Medical Code(s): E87.1 - Hypo- osmolality and hyponatremia Improved with IV fluids. Check labs tomorrow (4) Hypocalcemia Current visit: Yes Status: Acute Category: Medical Code(s): E83.51 - Hypocalcemia Calcium gluconate intravenous infusion today. Check labs tomorrow
[2019-04-29 07:07] LABS: Anion Gap 10.3 mEq/L (5-15); Calcium 8.2 mg/dL (8.5-10.1)
[2019-04-29 07:18] LABS: Hematocrit 34.1 % (42.0-52.0); Hemoglobin 10.9 g/dL (14.1-18.0); Mean Corpuscular HGB Conc 32.1 g/dL (31.8-35.4); Mean Corpuscular Volume 99.3 fl (80-94); Platelet Count 316 K/mm3 (142-424); Red Blood Count 3.43 M/mm3 (4.60-6.20); White Blood Count 6.8 K/mm3 (4.8-10.8)
[2019-04-29 07:19] LABS: Basophils % 0.2 % (0.1-2.0); Eosinophils % 14.3 % (0.1-12.0); Lymphocytes # 1.4 K/mm3 (0.7-4.5); Lymphocytes % 24.2 % (10-50); Monocytes # 0.3 K/mm3 (0.1-1.0); Monocytes % 4.1 % (1.7-9.3); Neutrophils # 3.9 K/mm3 (1.8-7.8); Neutrophils % 57.3 % (37.0-80.0)
--- NOTE | 2019-04-29 08:05 | Discharge Summary ---
General - General Admission date:: 04/26/19 Discharge date: 04/29/19 HPI HPI: 78-year-old black male with history of poor circulation and recurrent cellulitis in the past who otherwise has enjoyed good functional status who came to the emergency department with left leg heat and swelling. He has a history of work- related chronic skin wounds in the left anterior faust but these have not changed but has noticed that his left calf and faust have been swollen and hot. In the emergency department Doppler testing was negative for DVT but he was noted to have a cellulitis in this leg and was admitted to hospital for IV antibiotics given his multiple comorbid conditions. Hospital Course Hospital Course: Patient was admitted as noted, placed on ceftriaxone. Tolerated this well and had less pain and heat in the leg. He was noted to have hypokalemia and hypocalcemia, these were treated with p.o. and intravenous infusions of potassium and calcium respectively, this morning his electrolytes were improved. Apparently he does not have the best diet at home, and his children have been taking him food. I recommended that they start a multivitamin daily as well as more enhance protein intake. This morning patient was feeling much better, able to walk around his leg without pain. Plan will be to discharge home on Omnicef twice daily for a week, I will see him in 1 week in the office. I will also prescribe low-dose potassium given his improved but yet residual hypokalemia. Objective Vital signs: Temp Pulse Resp BP Pulse Ox 98.5 F 59 L 17 113/68 99 04/29/19 03:50 04/29/19 03:50 04/29/19 03:50 04/29/19 03:50 04/29/19 03:50 Narrative: Patient is pleasant, talkative, eating breakfast vigorously. Oropharynx clear. No JVD. Lungs with good air movement and clear. Heart rate regular. Abdomen soft. Left calf remains slightly swollen compared to the right but there is no redness, no heat. Patient's previously noted hypopigmented scars are unchanged and without redness. Distal perfusion and capillary refill is normal. Results Labs on day of discharge: Labs from last 24 hours 04/29/19 04/29/19 06:32 06:32 WBC 6.8 D RBC 3.43 L Hgb 10.9 L Hct 34.1 L MCV 99.3 H MCH 31.8 H MCHC 32.1 RDW 14.0 Plt Count 316 MPV 7.0 L Neut % (Auto) 57.3 Lymph % (Auto) 24.2 [place] % (Auto) 4.1 Eos % (Auto) 14.3 H Baso % (Auto) 0.2 Neut # (Auto) 3.9 Lymph # (Auto) 1.4 [place] # (Auto) 0.3 Eos # (Auto) 1.0 H Baso # (Auto) 0.0 Sodium 140 Potassium 3.3 L Chloride 106 Carbon Dioxide 27 Anion Gap 10.3 BUN 7 D Creatinine 0.87 Estimated Creat Clear 81 Estimated GFR 85 Est GFR ( Amer) 103 Glucose 104 Calcium 8.2 L Preliminary micro results at discharge 04/26/19 16:45 Blood Culture - Preliminary Blood NO GROWTH AFTER 48 HOURS 04/26/19 16:45 Blood Culture - Preliminary Blood NO GROWTH AFTER 48 HOURS DS: Diagnosis - Discharge Diagnosis (1) Cellulitis Status: Acute (2) Hypokalemia Status: Acute (3) Hyponatremia Status: Resolved (4) Hypocalcemia Status: Resolved Discharge Plan - Patient Discharge Instructions ACTIVITY: Continue current activity DIET: continue same diet Patient Instructions: DI for Cellulitis -- Adult - Follow up Plan Follow up with: Wilfred Rodriguez MD [Primary Care Provider] - 1 week Disposition: Home, Self-Halfway Medications: Home Medications Medication Instructions Recorded Confirmed Type Aspirin [Aspirin 81mg EC Tab] 81 mg PO DAILY 07/26/18 04/26/19 History Tamsulosin HCl [Flomax 0.4mg 0.4 mg PO HS 07/26/18 04/26/19 History capsule] Cefdinir [Omnicef 300mg Capsule] 300 mg PO BID #14 cap 04/29/19 Rx Potassium Chloride [Micro-K 10mEq 10 meq PO DAILY #30 cap 04/29/19 Rx cap] Prescriptions/Medication Reconciliation: New Cefdinir [Omnicef 300mg Capsule] 300 mg PO BID #14 cap Potassium Chloride [Micro-K 10mEq cap] 10 meq PO DAILY #30 cap Continued Aspirin [Aspirin 81mg EC Tab] 81 mg PO DAILY Tamsulosin HCl [Flomax 0.4mg capsule] 0.4 mg PO HS - Problem Reconciliation Problems Reviewed?: Yes
--- NOTE | 2019-04-30 09:26 | Cardiology Report ---
APPROVED REPORT Bilateral Lower Extremity Venous Study for DVT. Care Specialist: Tootie Romero RT(R) Indications Current Smoker R/O DVT Risk Factors Current Smoker Vein Imaging CFV (R): Compressiblecompressive, spontaneous, phasic, augmentation FEM (R): compressive, spontaneous, phasic, augmentation POP (R): compressive, spontaneous, phasic, augmentation PTV (R): Compressible GSV (R): Compressible SSV (R): Compressible Peroneals (R):Compressible CFV (L): compressive, spontaneous, phasic, augmentation FEM (L): compressive, spontaneous, phasic, augmentation POP (L): compressive, spontaneous, phasic, augmentation PTV (L): Compressible GSV (L): Compressible SSV (L): Compressible Peroneals (L):Compressible Conclusion No evidence of DVT or superficial thrombophlebitis in the veins scanned of the right lower extremity. No evidence of DVT or superficial thrombophlebitis in the veins scanned of the left lower extremity. Electronically signed by : Skyler Brian MD 04/30/2019 09:25:51
== END 2019-04-29 08:55 | disposition home or self-care (01) ==
LOC: 2ND 16:39 → ER 16:39 → 2ND 20:08
PROVIDERS: ADMIT Internal Medicine Adolescent Medicine; ATTEND Internal Medicine Adolescent Medicine
CPT/HCPCS: 36415; 71020; 71046; 80048; 80053; 81001; 83605; 85007; 85025; 87040; 93970; 96365; 96367; 99283; G0378; S0077

== ENCOUNTER 2020-09-21 22:21 | Emergency (ER) | payer MEDICARE, SELFPAY ==
[2020-09-21] VITALS (7 sets, daily range): BP systolic 159–168; BP diastolic 68–98; PULSE 67–87; RESP 16; TEMP 36.7; O2SAT 97–100; BMI 27.8
--- NOTE | 2020-09-21 22:23 | PC.NURSE ---
stroke alert called
--- NOTE | 2020-09-21 22:25 | PC.NURSE ---
at bedside. FSBS taken at this time 102
--- NOTE | 2020-09-21 22:28 | PC.NURSE ---
pt to RAD with Anders
--- NOTE | 2020-09-21 22:31 | PC.NURSE ---
NIH Score is a 6 at this time
--- NOTE | 2020-09-21 22:43 | PC.NURSE ---
pt aren form RAD
--- NOTE | 2020-09-21 22:48 | PC.NURSE ---
speaking with SCARLET
--- NOTE | 2020-09-21 23:00 | HMH.EDNEU ---
ED Disposition Clinical Impression: Cerebrovascular accident Qualifiers: CVA mechanism: unspecified Qualified Code(s): I63.9 - Cerebral infarction, unspecified Disposition: Xfer Short-Term Hosp Condition on Discharge: Serious Referrals: PCP,No [Primary Care Provider] - - Critical Care Critical Care Time: Yes Attestation: On 09/21/20, the high probability of a clinically significant, sudden or life threatening deterioration of the following system(s) required my full and direct attention, intervention and personal management. The time I documented below is in addition to time spent performing reported procedures but includes the following listed in this critical care notation. Total Critical Care Time: 30 Vital system(s) involved:: Central Nervous System My critical care processes included: Assessment & monitoring of V/S, Initial and Re-exams, Data Review/Interpretation, Coordinating Care, Medication Orders and management, Documentation Medical Decision Making - Medical Records Medical records reviewed: Yes: I reviewed the patient's medical records. - Segrio Inquiry Pt receiving controlled substance: No Vital Signs: 09/21/20 22:22 Temperature 98.1 F Temperature Source Oral Pulse Rate [Left Radial] 87 Respiratory Rate 16 Blood Pressure [Right Arm] 165/98 H Blood Pressure Mean [Right Arm] 120 Blood Pressure Source [Right Arm] Automatic Cuff Blood Pressure Position [Right Arm] Sitting 02 Sat by Pulse Oximetry 97 Oxygen Delivery Method Room Air - Lab Data Lab results reviewed: Yes: I reviewed the patient's lab results. Lab Results 09/21/20 22:50: WBC 8.5, RBC 4.42 L, Hgb 14.2, Hct 43.9, MCV 99.3 H, MCH 32.1 H, MCHC 32.3, RDW 13.8, Plt Count 293, MPV 7.3 L, Neut % (Auto) 65.3, Lymph % (Auto) 23.2, [place] % (Auto) 4.3, Eos % (Auto) 6.8, Baso % (Auto) 0.4, Neut # (Auto) 5.6, Lymph # (Auto) 2.0, [place] # (Auto) 0.4, Eos # (Auto) 0.6 H, Baso # (Auto) 0.0 09/21/20 22:50: Sodium 139, Potassium 4.1, Chloride 105, Carbon Dioxide 25, Anion Gap 13.1, BUN 17, Creatinine 1.00, Estimated Creat Clear 76, Estimated GFR 72, Est GFR ( Amer) 87, Glucose 115 H, Calcium 9.2 Result diagrams: 09/21/20 22:50 09/21/20 22:50 Orders (Tests/Meds): ORDERS Category Date Time Status CT head/brain wo con Stat Cat Scan 09/21/20 23:05 Ordered - CT Data CT Scan: Head Time Received: 23:[address] Reviewed: Yes: I have viewed the radiologist's interpretation Preliminary Findings: Normal/NAD - ECG Data Tracing #1 Ischemic changes: non-specific ST-T wave changes Conduction abnormalities present: 2nd degree AV block, Mobitz I - Physician Consults Physician Consulted: - stroke-[facility] Reason -: Transfer to another facilty Medical Decision Narrative: acute cva and meets protocol and agreed to tpa - family and pt understood and agreed Neuro HPI - General Chief Complaint: Neuro Symptoms/Deficit Stated Complaint: stroke Time Seen by Provider: 09/21/20 22:25 Mode of Arrival: Wheelchair Source of Information: Patient, Relative, Medical Record Limitations: No Limitations Description of Symptoms (Recalled from ER Triage Doc. by RN): pt brought in by family member who stated pt left side of his face began to droop and he had weakness in his left arm. pt family member stated last known normal is about 10pm. pt is alert and oriented at this time. - History of Present Illness HPI Narrative: acute onset of cva at 2215 - family there and records last seen at 2200 -nl - no recent surg or head bleed and no trauma and on no meds - not diabetic - no prev cva Onset (ago): hour(s) Timing confirmed by: family member Location: left face, dysarthria, left arm History of same: No Severity: moderate Context: sudden onset On Anticoagulants: No Associated symptoms: denies other symptoms Treatments Prior to Arrival: none - Related Data Home Medications: Home Medications Medication Instructions Recorded Confirmed Aspi
--- NOTE | 2020-09-21 23:05 | CT_ITS ---
PROCEDURE: CT HEAD/BRAIN WO CON CLINICAL INDICATION: stroke alert Left-sided facial droop, numbness paresthesia and facial weakness, left arm weakness COMPARISON: CT HEADWO CT head/brain wo con from 05/24/2018 TECHNIQUE: Axial images obtained. All CT scans at the facility use one or more dose reduction, viz: automated exposure control, ma/kV adjustment per patient size (including targeted exams where dose is matched to indication, i.e. head), or iterative reconstruction technique. FINDINGS: No midline shift, mass effect, intracranial hemorrhage, hydrocephalus, or extra-axial fluid collection is evident. There is generalized atrophy with hypoattenuation of the periventricular white matter consistent with microangiopathic changes. The calvarium has an unremarkable appearance. No mastoid effusion. No sinus air-fluid level. IMPRESSION: No acute intracranial finding Dictated by: Skyler Brian MD 09/22/2020 06:12 Skyler Brian MD in [place] 09/22/2020 06:12
[2020-09-21 23:08] LABS: Anion Gap 13.1 mEq/L (5-15); Basophils % 0.4 % (0.1-2.0); Blood Urea Nitrogen 17 mg/dl (9-20); Calcium 9.2 mg/dl (8.4-10.2); Carbon Dioxide 25 mmol/L (22.0-30.0); Chloride 105 mmol/L (98-107); Creatinine Clearance Estimated 76 mL/min (50-200); Eosinophils # 0.6 K/mm3 (0.0-0.4); Eosinophils % 6.8 % (0.1-12.0); Estimated Glomerular Filt Rate 72 ml/min (>60); GFR (African American) 87 ML/MIN (>60); Glucose 115 mg/dl (74-100); Hematocrit 43.9 % (42.0-52.0); Hemoglobin 14.2 g/dL (14.1-18.0); Lymphocytes % 23.2 % (10-50); Mean Corpuscular HGB Conc 32.3 g/dL (31.8-35.4); Mean Corpuscular Hemoglobin 32.1 pg (27.0-31.2); Mean Corpuscular Volume 99.3 fl (80-94); Mean Platelet Volume 7.3 fl (7.4-10.4); Monocytes # 0.4 K/mm3 (0.1-1.0); Monocytes % 4.3 % (1.7-9.3); Neutrophils # 5.6 K/mm3 (1.8-7.8); Neutrophils % 65.3 % (37.0-80.0); Platelet Count 293 K/mm3 (142-424); Potassium 4.1 mmoL/L (3.5-5.1); Red Blood Count 4.42 M/mm3 (4.60-6.20); Red Cell Distribution Width 13.8 % (11.5-17.5); Sodium 139 mmol/L (136-145); White Blood Count 8.5 K/mm3 (4.8-10.8)
--- NOTE | 2020-09-21 23:13 | ECG_ITS ---
APPROVED REPORT Exam: Resting ECG HR:58 bpm ECG Measurements Heart Rate 58 AXES [place] P 88 QRSd 78 QRS 62 QT 424 T 63 QTc 416 Conclusion Sinus rhythm with 2nd degree AV block (Mobitz I) Abnormal ECG Electronically signed by : Wilfred Rodriguez, 09/22/2020 06:57:29
--- NOTE | 2020-09-21 23:16 | PC.NURSE ---
spoke with Von in Pharmacy for TPA dosing
--- NOTE | 2020-09-21 23:27 | PC.NURSE ---
Activase bolus of 8mg infused
--- NOTE | 2020-09-21 23:28 | PC.NURSE ---
Activase gtt of 73mg infusing over 1 hour.
--- NOTE | 2020-09-21 23:28 | PC.NURSE ---
report called to Mary
--- NOTE | 2020-09-21 23:41 | PC.NURSE ---
Air Methods at bedside
[2020-11-03 13:03] LABS: POC Glucose,Bedside 102 (70-110)
== END 2020-09-21 23:52 | disposition short-term general hospital (02) ==
PROVIDERS: Emergency Provider Emergency Medicine
DX: I63.89 Other cerebral infarction (principal); R29.810 Facial weakness; G83.24 Monoplegia of upper limb affecting left nondominant side; F17.210 Nicotine dependence, cigarettes, uncomplicated
CPT/HCPCS: 70450; 80048; 82962; 85025; 93005; 96365; 99284; J2997

== ENCOUNTER → 2020-11-19 17:31 | Outpatient (CLI) | payer MEDICARE, SELFPAY ==
[2020-11-19 18:10] LABS: Basophils % 0.5 % (0.1-2.0); Eosinophils # 0.5 K/mm3 (0.0-0.4); Eosinophils % 7.1 % (0.1-12.0); Hematocrit 38.8 % (42.0-52.0); Hemoglobin 12.3 g/dL (14.1-18.0); Lymphocytes # 1.4 K/mm3 (0.7-4.5); Lymphocytes % 21.4 % (10-50); Mean Corpuscular HGB Conc 31.7 g/dL (31.8-35.4); Mean Corpuscular Hemoglobin 30.7 pg (27.0-31.2); Mean Corpuscular Volume 96.8 fl (80-94); Mean Platelet Volume 8.4 fl (7.4-10.4); Monocytes # 0.4 K/mm3 (0.1-1.0); Monocytes % 5.5 % (1.7-9.3); Neutrophils # 4.3 K/mm3 (1.8-7.8); Neutrophils % 65.5 % (37.0-80.0); Platelet Count 455 K/mm3 (142-424); Red Blood Count 4.01 M/mm3 (4.60-6.20); Red Cell Distribution Width 14.1 % (11.5-17.5); White Blood Count 6.6 K/mm3 (4.8-10.8)
[2020-11-19 18:33] LABS: Alanine Aminotransferase 10 U/L (12-78); Albumin Level 4.1 g/dl (3.5-5.0); Albumin/Globulin Ratio 0.9 (1.1-1.8); Alkaline Phosphatase 110 U/L (38-126); Anion Gap 12.9 mEq/L (5-15); Aspartate Amino Transferase 20 U/L (17-59); Bilirubin,Total 0.8 mg/dl (0.2-1.3); Blood Urea Nitrogen 8 mg/dl (9-20); Calcium 9.3 mg/dl (8.4-10.2); Carbon Dioxide 23 mmol/L (22.0-30.0); Chloride 105 mmol/L (98-107); Chol/HDL Ratio 4.3 (1-3.5); Cholesterol 191 mg/dl (140-200); Estimated Glomerular Filt Rate 109 ml/min (>60); GFR (African American) 131 ML/MIN (>60); Globulin 4.5 g/dL (1.3-3.2); Glucose 98 mg/dl (74-100); HDL Cholesterol 44 mg/dl (40-60); Potassium 3.9 mmoL/L (3.5-5.1); Sodium 137 mmol/L (136-145); Total Protein,Serum 8.6 g/dl (6.3-8.2); Triglycerides 147 mg/dl (30-150); VLDL Cholesterol 29 mg/dL (0-40)
[2020-11-19 18:44] LABS: Direct LDL Cholesterol 102.87 mg/dL (100-129)
[2020-11-19 18:50] LABS: Free T4 (Free Thyroxine) 0.73 ng/dl (0.78-2.19)
[2020-11-19 19:03] LABS: Thyroid Stimulating Hormone 0.51 uIU/mL (0.465-4.68)
[2020-11-19 19:25] LABS: Hemoglobin A1C 5.8 % (4.0-6.0)
== END ==
PROVIDERS: Visit Provider Nurse Practitioner Family
DX: R53.83 Other fatigue (principal); E11.9 Type 2 diabetes mellitus without complications; E78.5 Hyperlipidemia, unspecified; L03.115 Cellulitis of right lower limb; Z79.84 Long term (current) use of oral hypoglycemic drugs
CPT/HCPCS: 80053; 80061; 83036; 84439; 84443; 85025

== ENCOUNTER 2021-08-13 15:51 | Observation (INO) | payer MEDICARE, SELFPAY ==
[2021-08-13] VITALS (8 sets, daily range): BP systolic 112–169; BP diastolic 46–69; PULSE 43–87; RESP 14–22; TEMP 36.7–37.2; O2SAT 97–100; BMI 28.3; BMI 26.5
--- NOTE | 2021-08-13 16:19 | HMH.EDGENADL ---
ED Disposition Condition on Discharge: Fair - Critical Care Critical Care Time: No <Denzel Rachel - Last Filed: 08/13/21 19:33> <Ja Leonard - Last Filed: 08/13/21 20:57> Clinical Impression: Enteritis, Stenosis of celiac artery, Superior mesenteric artery stenosis, SIRS (systemic inflammatory response syndrome) Nausea & vomiting Qualifiers: Vomiting type: unspecified Qualified Code(s): R11.2 - Nausea with vomiting, unspecified Anemia Qualifiers: Anemia type: unspecified type Qualified Code(s): D64.9 - Anemia, unspecified Disposition: Admitted as Observation Instructions: DI for Nausea -- Adult Referrals: Jhonny Casanova APRN [Primary Care Provider] - Attestation: On 08/13/21, the high probability of a clinically significant, sudden or life threatening deterioration of the following system(s) required my full and direct attention, intervention and personal management. The time I documented below is in addition to time spent performing reported procedures but includes the following listed in this critical care notation. Medical Decision Making - Medical Records Medical records reviewed: Yes: I reviewed the patient's medical records. - Sergio Inquiry Pt receiving controlled substance: No - Lab Data Result diagrams: 08/13/21 17:45 08/13/21 17:45 - CT Data CT Scan: Abdomen, Pelvis Time Received: 19:[address] Reviewed: Yes: I have reviewed the patient's CT results, I have viewed the radiologist's interpretation - Reevaluation(s) Time: 19:34 <Denzel Rachel - Last Filed: 08/13/21 19:33> - Lab Data Lab results reviewed: Yes: I reviewed the patient's lab results. Result diagrams: 08/13/21 17:45 08/13/21 17:45 <Ja Leonard - Last Filed: 08/13/21 20:57> Vital Signs: 08/13/21 15:52 08/13/21 17:01 08/13/21 17:31 Temperature 98.1 F Temperature Source Oral Pulse Rate 75 83 Pulse Rate [Left Radial] 87 Respiratory Rate 22 18 14 Blood Pressure 112/49 L 169/67 H Blood Pressure [Right Arm] 158/69 H Blood Pressure Mean 68 80 Blood Pressure Mean [Right Arm] 98 Blood Pressure Source [Right Arm] Automatic Cuff Blood Pressure Position [Right Arm] Sitting 02 Sat by Pulse Oximetry 97 98 98 Oxygen Delivery Method Room Air - Lab Data Lab Results 08/13/21 16:14: POC Glucose 142 H 08/13/21 17:45: WBC 18.9 H, RBC 3.66 L, Hgb 10.2 L, Hct 33.4 L, MCV 91.3, MCH 27.7, MCHC 30.4 L, RDW 15.7, Plt Count 558 H, MPV 8.0, Neut % (Auto) 91.9 H, Lymph % (Auto) 3.4 L, [place] % (Auto) 2.8, Eos % (Auto) 1.7, Baso % (Auto) 0.1, Neut # (Auto) 17.4 H, Lymph # (Auto) 0.7, [place] # (Auto) 0.5, Eos # (Auto) 0.3, Baso # (Auto) 0.0, Total Counted 100, Neutrophils % (Manual) 93 H, Lymphocytes % (Manual) 5 L, Monocytes % (Manual) 2, Platelet Estimate Moderate increase, Hypochromasia 2+ 08/13/21 17:45: Sodium 139, Potassium 4.4, Chloride 108 H, Carbon Dioxide 24, Anion Gap 11.4, BUN 11, Creatinine 0.90, Estimated Creat Clear 80, Estimated GFR 81, Est GFR ( Amer) 98, Glucose 149 H, Calcium 8.6, Total Bilirubin 0.2, AST 23, ALT 8 L, Alkaline Phosphatase 94, Total Protein 7.5, Albumin 3.9, Globulin 3.6 H, Albumin/Globulin Ratio 1.1, Lipase 38 08/13/21 19:20: Lactate 1.6 08/13/21 19:45: Urine Color Yellow, Urine Appearance Clear, Urine pH 6.0, Ur Specific [place] >= 1.030, Urine Protein Negative, Urine Glucose (UA) Negative, Urine Ketones Negative, Urine Blood Negative, Urine Nitrate Negative, Urine Bilirubin Negative, Urine Urobilinogen 0.2, Ur Leukocyte Esterase Trace Orders (Tests/Meds): ED MEDICATIONS Generic Name Dose Route Start Last Admin Trade Name Freq PRN Reason Stop Dose Admin Sodium Chloride 1,000 mls @ 999 mls/hr 08/13/21 19:00 08/13/21 19:00 Sod Chlor 0.9% 1000ml Bag IV 08/13/21 20:00 999 mls/hr .[id number] GAYLE Administration Discontinued Medications Generic Name Dose Route Start Last Admin Trade Name Freq PRN Reason Stop Dose Admin Sodium Chloride 1,000 ml
[2021-08-13 16:21] LABS: POC Glucose,Bedside 142 (70-110)
--- NOTE | 2021-08-13 16:34 | CT_ITS ---
PROCEDURE INFORMATION: Exam: CT Abdomen And Pelvis Without Contrast Exam date and time: 08/13/2021 4:34 PM Age: 81 years old Clinical indication: Vomiting TECHNIQUE: Imaging protocol: Computed tomography of the abdomen and pelvis without contrast. Radiation optimization: All CT scans at this facility use at least one of these dose optimization techniques: automated exposure control; mA and/or kV adjustment per patient size (includes targeted exams where dose is matched to clinical indication); or iterative reconstruction. COMPARISON: [facility] CT abdomen pelvis wo con 06/27/2018 8:18 PM FINDINGS: Lungs: Dependent bilateral lung base opacities favor atelectasis. Liver: Normal. No mass. Gallbladder and bile ducts: Normal. No calcified stones. No ductal dilation. Pancreas: See Stomach and bowel finding. Spleen: Normal. No splenomegaly. Adrenal glands: Normal. No mass. Kidneys and ureters: Normal. No hydronephrosis. Stomach and bowel: Inflammatory changes and fluid at the pancreatic head subjacent to the duodenum suggest mild the acute pancreatitis. Diverticula are scattered throughout the colon without inflammatory changes. Appendix: No evidence of appendicitis. Intraperitoneal space: Unremarkable. No free air. No significant fluid collection. Vasculature: Moderate calcific atherosclerotic disease is scattered throughout the abdominal aorta without aneurysmal dilatation. Lymph nodes: Left upper quadrant small bowel thickening with shotty mesenteric nodes and mild inflammatory changes could be related to adjacent pancreatic inflammatory changes versus infectious enteritis versus ischemia. Urinary bladder: Bladder diverticulum measures 1.9 x 3.2 x 2.0 cm unchanged from prior exam. Reproductive: Unremarkable as visualized. Bones/joints: Moderate bilateral degenerative changes of the hips. Moderate to severe multilevel discogenic degenerative changes of the lower lumbar spine. Soft tissues: Bilateral inguinal hernias fat containing on the left, and small bowel containing on the right. IMPRESSION: 1. Inflammatory changes and fluid at the pancreatic head subjacent to the duodenum suggest mild acute pancreatitis. 2. Bilateral inguinal hernias fat containing on the left, and small bowel containing on the right. No evidence of obstruction. 3. Left upper quadrant small bowel thickening with shotty mesenteric nodes and mild inflammatory changes could be related to adjacent pancreatic inflammatory changes versus infectious enteritis versus ischemia. Laboratory values will help differentiate the process.
[2021-08-13 18:01] LABS: Basophils % 0.1 % (0.1-2.0); Eosinophils # 0.3 K/mm3 (0.0-0.4); Eosinophils % 1.7 % (0.1-12.0); Hematocrit 33.4 % (42.0-52.0); Hemoglobin 10.2 g/dL (14.1-18.0); Lymphocytes # 0.7 K/mm3 (0.7-4.5); Lymphocytes % 3.4 % (10-50); MANUAL DIFFERENTIAL MANUAL DIFFERENTIAL (MANUAL DIFF); Mean Corpuscular HGB Conc 30.4 g/dL (31.8-35.4); Mean Corpuscular Hemoglobin 27.7 pg (27.0-31.2); Mean Corpuscular Volume 91.3 fl (80-94); Monocytes # 0.5 K/mm3 (0.1-1.0); Monocytes % 2.8 % (1.7-9.3); Neutrophils # 17.4 K/mm3 (1.8-7.8); Neutrophils % 91.9 % (37.0-80.0); Platelet Count 558 K/mm3 (142-424); Red Blood Count 3.66 M/mm3 (4.60-6.20); Red Cell Distribution Width 15.7 % (11.5-17.5); White Blood Count 18.9 K/mm3 (4.8-10.8)
[2021-08-13 18:08] LABS: Chloride 108 mmol/L (98-107); Potassium 4.4 mmoL/L (3.5-5.1); Sodium 139 mmol/L (136-145)
[2021-08-13 18:11] LABS: Alanine Aminotransferase 8 U/L (12-78); Albumin Level 3.9 g/dl (3.5-5.0); Albumin/Globulin Ratio 1.1 (1.1-1.8); Alkaline Phosphatase 94 U/L (38-126); Anion Gap 11.4 mEq/L (5-15); Aspartate Amino Transferase 23 U/L (17-59); Bilirubin,Total 0.2 mg/dl (0.2-1.3); Blood Urea Nitrogen 11 mg/dl (9-20); Calcium 8.6 mg/dl (8.4-10.2); Carbon Dioxide 24 mmol/L (22.0-30.0); Creatinine Clearance Estimated 80 mL/min (50-200); Estimated Glomerular Filt Rate 81 ml/min (>60); GFR (African American) 98 ML/MIN (>60); Globulin 3.6 g/dL (1.3-3.2); Glucose 149 mg/dl (74-100); Lipase 38 U/L (23-300); Total Protein,Serum 7.5 g/dl (6.3-8.2)
[2021-08-13 18:24] LABS: Hypochromasia 2+; Lymphocytes % 5 % (10-50); Monocytes % 2 % (2-9); Neutrophils % 93 % (42-76); Platelet Estimate Moderate Increase; Total Cells Counted 100
--- NOTE | 2021-08-13 18:51 | CT_ITS ---
PROCEDURE INFORMATION: Exam: CTA Abdomen and Pelvis With Contrast Exam date and time: 08/13/2021 6:51 PM Age: 81 years old Clinical indication: Abdominal pain; Generalized; Patient HX: RO ischemic bowel TECHNIQUE: Imaging protocol: Computed tomographic angiography of the abdomen and pelvis with contrast material. 3D rendering (Not supervised by radiologist): MIP and/or 3D reconstructed images were created by the technologist. Radiation optimization: All CT scans at this facility use at least one of these dose optimization techniques: automated exposure control; mA and/or kV adjustment per patient size (includes targeted exams where dose is matched to clinical indication); or iterative reconstruction. Contrast material: ISOVUE 370; Contrast volume: 100 ml; Contrast route: INTRAVENOUS (IV); COMPARISON: CT ABDOMEN PELVIS WO CON 08/13/2021 5:17 PM FINDINGS: Aorta: No aortic aneurysm. No aortic dissection. Celiac trunk and mesenteric arteries: Severe calcific atherosclerotic disease at the celiac origin with high-grade stenosis of the celiac axis at its origin, stable from 2018. Moderate calcific atherosclerotic disease of the SMA origin resulting in at least moderate stenosis. Renal arteries: No occlusion or significant stenosis. Right iliac arteries: No occlusion or significant stenosis. Left iliac arteries: No occlusion or significant stenosis. Liver: No mass. Gallbladder and bile ducts: Unremarkable. No calcified stones. No ductal dilation. Pancreas: Inflammatory changes in fluid at the pancreatic head stable from recent comparison. Spleen: Unremarkable. No splenomegaly. Adrenal glands: Unremarkable. No mass. Kidneys and ureters: Unremarkable. No solid mass. No hydronephrosis. Stomach and bowel: Mesenteric arterial supply to the left upper quadrant small bowel is well opacified, ischemic left upper quadrant bowel is less likely given these findings. Left upper quadrant small bowel thickening unchanged from prior exam. Appendix: No evidence of appendicitis. Intraperitoneal space: Unremarkable. No free air. No significant fluid collection. Lymph nodes: Unremarkable. No enlarged lymph nodes. Urinary bladder: Urinary bladder diverticulum unchanged. Reproductive: Unremarkable as visualized. Bones/joints: The celiac axis is opacified likely by retrograde flow. Osseous degenerative changes stable from recent prior examination. Soft tissues: Bilateral inguinal hernias unchanged. IMPRESSION: 1. Severe calcific atherosclerotic disease at the celiac origin with high-grade stenosis of the celiac axis at its origin, stable from 2018. The celiac axis is opacified likely by retrograde flow. 2. Mesenteric arterial supply to the left upper quadrant small bowel is well opacified, ischemic left upper quadrant bowel is less likely given these findings. 3. Left upper quadrant small bowel thickening, more likely related to infectious enteritis. Findings were discussed with Dr. Leonard at 08/13/2021 8:41 PM EST.
[2021-08-13 19:35] LABS: Lactic Acid 1.6 mmol/L (0.7-2.1)
[2021-08-13 19:52] LABS: Microscopic, Urine URINE MICROSCOPIC (MICROSCOPIC)
[2021-08-13 20:10] LABS: Appearance,Urine CLEAR (Clear); Bilirubin,Urine Negative (Negative); Blood, Urine Negative (Negative); Color,Urine YELLOW (Yellow); Glucose,Urine (UA) Negative (Negative); Ketones,Urine Negative (Negative); Leukocyte Esterase,Urine TRACE (Negative); Nitrate,Urine Negative (Negative); Protein,Urine Negative (Negative); Specific Gravity, Urine >= 1.030 (1.005-1.030); Urobilinogen,Urine 0.2 EU/dl (0.2)
--- NOTE | 2021-08-13 20:34 | PC.NURSE ---
Dr. Leonard s/w EUGENEAD
[2021-08-13 20:48] LABS: Bacteria,Urine Trace /lpf; RBC,Urine Occasional #/hpf (0-3); WBC,Urine 20-50 #/hpf (0-3)
[2021-08-13 20:52] LABS: Coronavirus 19, PCR Not Detected (NotDetected); Influenza A, PCR Not Detected (NotDetected); Influenza B, PCR Not Detected (NotDetected)
[2021-08-13 21:06] LABS: Procalcitonin 0.327 ng/mL (0.0-2.0)
--- NOTE | 2021-08-13 21:36 | PC.NURSE ---
Report called to Avis
[2021-08-13 21:39] LABS: Erythrocyte Sedimentation Rate 29 mm/hr (0-20)
--- NOTE | 2021-08-13 21:43 | PC.NURSE ---
PT ARRIVED TO FLOOR VIA STRETCHER FROM ED W/STAFF @ [id number]
[2021-08-13 22:29] LABS: POC Glucose,Bedside 88 (70-110)
--- NOTE | 2021-08-14 03:01 | HMH.PHAVTE ---
[facility] Pharmacy VTE Monitoring - Patient Demographics Admission date: 08/14/21 Report Date: 08/14/21 Time: 03:01 Allergies/Adverse Reactions: Patient Allergies No Known Allergies Allergy (Verified 11/19/20 14:21) Height: 1.85 m Weight: 90.9 kg Patient Problems: Current Active Problems Nausea & vomiting (Acute) Enteritis (Acute) Stenosis of celiac artery (Acute) Superior mesenteric artery stenosis (Acute) SIRS (systemic inflammatory response syndrome) (Acute) Anemia (Acute) - VTE Risk Labs: VTE Related Lab Results Hgb 10.2 g/dL (14.1-18.0) L 08/13/21 17:45 Hct 33.4 % (42.0-52.0) L 08/13/21 17:45 Plt Count 558 K/mm3 (142-424) H 08/13/21 17:45 BUN 11 mg/dl (9-20) 08/13/21 17:45 Creatinine 0.90 mg/dl (0.66-1.25) 08/13/21 17:45 Estimated Creat Clear 80 mL/min (50-200) 08/13/21 17:45 Clinical Trial Participant: No - Prophylaxis VTE Prophylaxis Ordered?: Yes Types of VTE Prophylaxis: TEDS Knee High
--- NOTE | 2021-08-14 03:53 | PC.NURSE ---
A&OX4. TOLERATING RA WELL. PT HAS HAD NO C/O NA/VO SINCE ARRIVAL TO FLOOR. PT HAS SLEPT T/O SHIFT. USING URINAL INDEPENDENTLY. VSS WILL CONTINUE TO MONITOR.
[2021-08-14 04:00] VITALS: BP 171/68; PULSE 61; RESP 16; TEMP 36.4; O2SAT 100
[2021-08-14 04:32] VITALS: BMI 26.5
[2021-08-14 06:55] LABS: POC Glucose,Bedside 82 (70-110)
[2021-08-14 08:00] VITALS: BP 144/78; PULSE 42; RESP 14; TEMP 36.6; O2SAT 100
--- NOTE | 2021-08-14 08:33 | HMH.PHAINT ---
Home medications confirmed with [facility] pharmacy and office visit (Jhonny Casanova APRN)
--- NOTE | 2021-08-14 10:27 | HMH.HP ---
*Admission Date: 08/14/21 *Chief complaint: vomiting - *History of present illness: this patient presented to the ed -his 81-year-old male presented to the emergency department with some nausea and vomiting approximately 2 hours prior to arrival. The patient states that he ate a fish sandwich just before the symptoms occurred. The patient states that he got very nauseous afterwards and then began vomiting. He has vomited multiple times. He is not having any abdominal tenderness, he states that he feels very nauseous. Vomit has been clear in nature with food particles. No hematemesis. Denies any diarrhea. Is not having any headache or change in vision. No focal weakness. No fevers or chills. No chest pain or palpitations. pt was admitted after cta-abd showed no acute ischemia -pt admitted with ivf and abx as abn u/a [facility] History I have reviewed the patient's past medical history: Yes Medical History: Reports:: Diabetes Mellitus Type 2, Hyperlipidemia Denies:: Cancer, Diabetes Mellitus Type 1, Internal Pacemaker, MRSA, Seizures *Have you ever received a pneumonia vaccine?: No *Have you received a flu vaccine this season?: No Other Medical History: Denies: Blood Transfusion Reaction Laterality Cases: Right: Arthroscopy Knee Other Surgeries: Yes: Colonoscopy, Hernia Repair (UMBILICAL). No: Pacemaker Amputation: No Fractures: No - *Social History Smoking Status: Current every day smoker Tobacco Type: cigarettes # Packs/Day (cigarettes): 1 Alcohol Intake: never *Occupational Status:: retired Housing: house Household Members: none *Travel in the last 8 weeks: None Family Hx:: No significant family history Review of Systems - Review of Systems Review of systems:: pertinent systems reviewed and negative unless documented below - Constitutional Denies fever(s) - Eyes Denies blurry vision - ENT Reports dry mouth - *Cardiovascular Denies chest pain - *Respiratory Denies cough - *Gastrointestinal Reports abdominal pain, Reports nausea, Reports vomiting - *Genitourinary Denies blood in urine - *Musculoskeletal Denies joint pain - Integumentary/Breasts Denies rash - *Neurologic Denies headache(s) - Psychiatric Denies anxiety Meds Home Medications Medication Instructions Recorded Confirmed Type cholecalciferol (vitamin D3) 25 25 mcg PO DAILY 11/19/20 08/14/21 History mcg (1,000 unit) capsule lidocaine 4 % topical patch 1 patch TOPICAL DAILYP PRN 11/19/20 08/14/21 History aspirin 81 mg tablet,delayed 81 mg PO DAILY #90 tab 02/12/21 08/14/21 Rx release tamsulosin 0.4 mg capsule 0.4 mg PO HS #90 cap 05/27/21 08/14/21 Rx Clopidogrel Bisulfate [Clopidogrel 75 mg PO DAILY 08/14/21 08/14/21 History 75mg Tab] Metformin HCl 500 mg PO BID 08/14/21 08/14/21 History lisinopriL [Lisinopril] 5 mg PO DAILY 08/14/21 08/14/21 History Allergies Allergy/AdvReac Type Severity Reaction Status Date / Time No Known Allergies Allergy Verified 11/19/20 14:21 Exam Vital signs and Labs for Last 24 Hours: Temp Pulse Resp BP Pulse Ox 97.8 F 42 L 14 144/78 H 100 08/14/21 08:00 08/14/21 08:00 08/14/21 08:00 08/14/21 08:00 08/14/21 08:00 Laboratory Results - last 24 hr 08/13/21 16:14: POC Glucose 142 H 08/13/21 17:45: WBC 18.9 H, RBC 3.66 L, Hgb 10.2 L, Hct 33.4 L, MCV 91.3, MCH 27.7, MCHC 30.4 L, RDW 15.7, Plt Count 558 H, MPV 8.0, Neut % (Auto) 91.9 H, Lymph % (Auto) 3.4 L, [place] % (Auto) 2.8, Eos % (Auto) 1.7, Baso % (Auto) 0.1, Neut # (Auto) 17.4 H, Lymph # (Auto) 0.7, [place] # (Auto) 0.5, Eos # (Auto) 0.3, Baso # (Auto) 0.0, Total Counted 100, Neutrophils % (Manual) 93 H, Lymphocytes % (Manual) 5 L, Monocytes % (Manual) 2, Platelet Estimate Moderate increase, Hypochromasia 2+ 08/13/21 17:45: Sodium 139, Potassium 4.4, Chloride 108 H, Carbon Dioxide 24, Anion Gap 11.4, BUN 11, Creatinine 0.90, Estimated Creat Clear 80, Estimated GFR 81, Est GFR ( Amer) 98, Glucose 149 H, Calc
[2021-08-14 11:33] LABS: POC Glucose,Bedside 100 (70-110)
[2021-08-14 14:31] LABS: Basophils % 0.5 % (0.1-2.0); Eosinophils # 0.6 K/mm3 (0.0-0.4); Eosinophils % 9.5 % (0.1-12.0); Hematocrit 29.1 % (42.0-52.0); Lymphocytes # 1.5 K/mm3 (0.7-4.5); Lymphocytes % 22.2 % (10-50); Mean Corpuscular HGB Conc 30.5 g/dL (31.8-35.4); Mean Corpuscular Volume 91.6 fl (80-94); Mean Platelet Volume 7.2 fl (7.4-10.4); Monocytes # 0.3 K/mm3 (0.1-1.0); Neutrophils # 4.3 K/mm3 (1.8-7.8); Neutrophils % 62.9 % (37.0-80.0); Platelet Count 404 K/mm3 (142-424); Red Blood Count 3.18 M/mm3 (4.60-6.20); Red Cell Distribution Width 15.3 % (11.5-17.5); White Blood Count 6.8 K/mm3 (4.8-10.8)
[2021-08-14 14:33] LABS: Hemoglobin 8.9 g/dL (14.1-18.0)
[2021-08-14 14:34] LABS: Chloride 108 mmol/L (98-107); Sodium 138 mmol/L (136-145)
[2021-08-14 14:35] LABS: Potassium 4.6 mmoL/L (3.5-5.1)
[2021-08-14 14:37] LABS: Anion Gap 8.6 mEq/L (5-15); Blood Urea Nitrogen 12 mg/dl (9-20); Carbon Dioxide 26 mmol/L (22.0-30.0); Creatinine Clearance Estimated 74 mL/min (50-200); Estimated Glomerular Filt Rate 93 ml/min (>60); GFR (African American) 112 ML/MIN (>60)
[2021-08-14 14:38] LABS: Glucose 107 mg/dl (74-100); Magnesium 1.8 mg/dl (1.6-2.3)
[2021-08-14 19:47] VITALS: BP 147/79; PULSE 67; RESP 18; TEMP 37.2; O2SAT 100
--- NOTE | 2021-08-15 03:49 | PC.NURSE ---
A&OX4. TOLERATING RA WELL. PT HAS BEEN IN GOOD SPIRITS THIS SHIFT. PT HAS HAD NO C/O THUS FAR, STATES HE IS FEELING GREAT . PT DID HAVE EPISODE OF INCONTINENCE THIS SHIFT. HAD A LARGE LOOSE BM. CLEANED AND NEW LINENS APPLIED. PT HAS NOT C/O NA/VO THIS SHIFT. VSS WILL CONTINUE TO MONITOR.
[2021-08-15 04:00] VITALS: BP 149/78; PULSE 66; RESP 18; TEMP 37; O2SAT 99
[2021-08-15 04:22] VITALS: BMI 26.8
[2021-08-15 05:11] LABS: POC Glucose,Bedside 109 (70-110)
[2021-08-15 07:47] LABS: Basophils % 0.5 % (0.1-2.0); Eosinophils # 0.7 K/mm3 (0.0-0.4); Eosinophils % 10.6 % (0.1-12.0); Hematocrit 32.5 % (42.0-52.0); Lymphocytes # 1.4 K/mm3 (0.7-4.5); Lymphocytes % 20.1 % (10-50); Mean Corpuscular HGB Conc 30.8 g/dL (31.8-35.4); Mean Corpuscular Hemoglobin 27.8 pg (27.0-31.2); Mean Corpuscular Volume 90.3 fl (80-94); Mean Platelet Volume 7.1 fl (7.4-10.4); Monocytes # 0.3 K/mm3 (0.1-1.0); Monocytes % 4.3 % (1.7-9.3); Neutrophils # 4.5 K/mm3 (1.8-7.8); Neutrophils % 64.6 % (37.0-80.0); Platelet Count 466 K/mm3 (142-424); Red Cell Distribution Width 15.3 % (11.5-17.5); White Blood Count 6.9 K/mm3 (4.8-10.8)
[2021-08-15 08:00] VITALS: BP 147/73; PULSE 87; RESP 16; TEMP 36.8; O2SAT 94
--- NOTE | 2021-08-15 09:01 | HMH.DCSUM ---
General - General Admission date:: 08/13/21 Discharge date: 08/15/21 HPI HPI: this patient presented to the ed -his 81-year-old male presented to the emergency department with some nausea and vomiting approximately 2 hours prior to arrival. The patient states that he ate a fish sandwich just before the symptoms occurred. The patient states that he got very nauseous afterwards and then began vomiting. He has vomited multiple times. He is not having any abdominal tenderness, he states that he feels very nauseous. Vomit has been clear in nature with food particles. No hematemesis. Denies any diarrhea. Is not having any headache or change in vision. No focal weakness. No fevers or chills. No chest pain or palpitations. pt was admitted after cta-abd showed no acute ischemia -pt admitted with ivf and abx as abn u/a Hospital Course Hospital Course: pt with slow improvement with ivf and meds with improvement in labs and activity level and tolerating diet Objective Vital signs: Temp Pulse Resp BP Pulse Ox 98.6 F 66 18 149/78 H 99 08/15/21 04:00 08/15/21 04:00 08/15/21 04:00 08/15/21 04:00 08/15/21 04:00 no acute distress - *Routine HEENT Exam Head: Present: normocephalic Eye: Present: EOMI, PERRL ENT: Present: mucous membranes moist - *Routine Neck Exam Present: supple - *Routine Respiratory Exam Present: CTA bilaterally - *Routine Cardiovascular Exam Present: RRR, murmur - *Routine Abdominal Exam Present: soft - *Routine Extremities Exam Present: full ROM - *Routine Skin Exam Present: intact - *Routine Neurological Exam Present: alert, CN II-XII intact - Routine Psychiatric Exam Present: normal affect Results Labs on day of discharge: Labs from last 24 hours 08/15/21 08/15/21 08/14/21 07:20 04:51 14:16 WBC 6.9 RBC 3.60 L Hgb 10.0 L D Hct 32.5 L MCV 90.3 MCH 27.8 MCHC 30.8 L RDW 15.3 Plt Count 466 H MPV 7.1 L Neut % (Auto) 64.6 Lymph % (Auto) 20.1 [place] % (Auto) 4.3 Eos % (Auto) 10.6 Baso % (Auto) 0.5 Neut # (Auto) 4.5 Lymph # (Auto) 1.4 [place] # (Auto) 0.3 Eos # (Auto) 0.7 H Baso # (Auto) 0.0 Sodium 138 Potassium 4.6 Chloride 108 H Carbon Dioxide 26 Anion Gap 8.6 BUN 12 Creatinine 0.80 Estimated Creat Clear 74 Estimated GFR 93 Est GFR ( Amer) 112 Glucose 107 H D POC Glucose 109 Calcium 8.0 L Magnesium 1.8 08/14/21 08/14/21 14:16 11:22 WBC 6.8 D RBC 3.18 L Hgb 8.9 L D Hct 29.1 L MCV 91.6 MCH 28.0 MCHC 30.5 L RDW 15.3 Plt Count 404 D MPV 7.2 L Neut % (Auto) 62.9 Lymph % (Auto) 22.2 [place] % (Auto) 5.0 Eos % (Auto) 9.5 Baso % (Auto) 0.5 Neut # (Auto) 4.3 Lymph # (Auto) 1.5 [place] # (Auto) 0.3 Eos # (Auto) 0.6 H Baso # (Auto) 0.0 Sodium Potassium Chloride Carbon Dioxide Anion Gap BUN Creatinine Estimated Creat Clear Estimated GFR Est GFR ( Amer) Glucose POC Glucose 100 Calcium Magnesium Preliminary micro results at discharge 08/13/21 19:45 Urine Culture - Preliminary Urine,Clean Catch DS: Diagnosis - Discharge Diagnosis (1) Enteritis Status: Acute (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
[2021-08-15 16:33] LABS: POC Glucose,Bedside 123 (70-110)
[2021-08-15 16:33] LABS: POC Glucose,Bedside 105 (70-110)
== END 2021-08-15 11:11 | disposition home or self-care (01) ==
LOC: ER 20:33 → 2ND 20:56
PROVIDERS: Emergency Medicine; Admitting Provider Emergency Medicine; Emergency Provider Emergency Medicine; PCP Nurse Practitioner Family; Visit Provider Emergency Medicine
DX: K52.9 Noninfective gastroenteritis and colitis, unspecified (principal); I77.4 Celiac artery compression syndrome; K55.1 Chronic vascular disorders of intestine; E11.9 Type 2 diabetes mellitus without complications; I10 Essential (primary) hypertension; Z79.02 Long term (current) use of antithrombotics/antiplatelets; Z79.899 Other long term (current) drug therapy; D64.9 Anemia, unspecified; Z79.84 Long term (current) use of oral hypoglycemic drugs; Z20.822 Contact with and (suspected) exposure to COVID-19
CPT/HCPCS: G0378; 36415; 74174; 74176; 80048; 80053; 81001; 82962; 83605; 83690; 83735; 84145; 85007; 85025; 85651; 86140; 87086; 96365; 96375; 99284; C9803; J2405; Q9967; U0003; U0005

== ENCOUNTER 2021-10-24 08:58 | Day surgery (SDC) | payer MEDICARE, SELFPAY ==
--- NOTE | 2021-10-24 | IR_ITS ---
APPROVED REPORT Patient Location: [facility] Recruiter: KATHY Armstrong RT (R) PROCEDURES Left heart catheterization Left ventriculogram Selective coronary angiogram Drug-eluting stent deployment to the ostial and distal left main artery Drug-eluting stent deployment to the proximal LAD Drug-eluting stent deployment to the ostial proximal and mid dominant right coronary Right radial arterial access Right femoral arterial access Left femoral arterial access Left femoral vein central access Endotracheal intubation Placement of intra-aortic balloon pump Removal of intra-aortic balloon pump Cardiopulmonary resuscitation INDICATION Coronary artery disease, Acute anterior ST elevation myocardial infarction, Cardiogenic shock, Acute respiratory failure, Cardiopulmonary arrest, Informed consent was obtained prior to the procedure. TECHNIQUE One percent lidocaine used to anesthetize the right anterior aspect of the wrist. The right radial artery was accessed via the Seldinger technique. A 6 Urdu sheath was placed in the right radial artery. 2.5 mg of verapamil, 800 mcg of nitroglycerin, 1mg Lidocaine and 5000 U Heparin were given through the arterial sheath. The Similar [place] catheter was also used to perform selective coronary angiography. Therapeutic heparin was administered. And a Choice PT wire was placed at the distal aspect of the guide catheter without the guide catheter in the left main artery. A 3 mm x 27 mm noncompliant balloon was then advanced over the wire and placed at the distal tip of the guide catheter. The guide catheter was then placed in the ostial critical stenosis and the wire was gingerly advanced through the critical tortuous left main stenosis and then into the distal LAD. Immediately the 3 mm balloon was advanced and deployed at 20 tasha and immediately deflated. The balloon was brought back to the ostium and the same procedure was repeated. Following this a 3.5 x 18 mm resolute [place] stent was then deployed in the distal left main artery extending into the proximal LAD and then deployed at 20 tasha. The critical distal left main stenosis was widely patent. At this point a 4 mm x 15 mm resolute [place] stent was then deployed in the ostium of the left main artery which was also overlapping 3.5 mm stent. This was deployed at 24 tasha. Following this a 4 mm balloon was then placed in the ostium of the left anterior descending artery and deployed at 20 tasha. The balloon was brought back into the left main artery and deployed at 24 tasha. For 4.5 mm noncompliant balloon was then placed in the ostial segment and deployed at 24 tasha. This failed to reduce the stenosis and there was recoiling of the stent of the ostial level. It was felt the high muscularity of the ostial left main would require additional stenting in order to completely reduce the ostial stenosis. A 4.5 x 12 mm resolute [place] stent was then deployed in the ostium at 20 tasha. The balloon was brought back and placed into the left coronary cusp as well as the ostial segment and then deployed at 24 tasha. Excellent angiographic results were obtained with FIDE-3 flow being present before and after the procedure. At this point patient still had significant ST depression and was continuing to have pauses on the telemetry strip. Patient had severe calcified stenoses in the right coronary artery therefore the guide catheter was placed in the right coronary artery and the same wire was placed distally. Predilatation was made however the was highly calcified. Multiple balloons and stents were delivered and FIDE-3 flow was present before and after the initial stent and angioplasty procedure. Patient continued to clinically deteriorate and required resuscitation
[2021-10-24 09:03] VITALS: BP 146/93; PULSE 102; RESP 22; TEMP 36.4; O2SAT 98; BMI 30.3
--- NOTE | 2021-10-24 09:11 | ECG_ITS ---
APPROVED REPORT Exam: Resting ECG HR:100 bpm ECG Measurements Heart Rate 100 AXES WI 192 P 235 QRSd 126 QRS 83 QT 343 T 24 QTc 400 Conclusion SINUS TACHYCARDIA MODERATE INTRAVENTRICULAR CONDUCTION DELAY [105+ ms QRS DURATION, 80+ ms Q/S IN V1/V2, NO Q AND 60+ ms R IN I/aVL/V5/V6] MARKED ST DEPRESSION, CONSIDER SUBENDOCARDIAL INJURY [0.2+ mV ST DEPRESSION] ACUTE IA UNCONFIRMED REPORT Electronically signed by : Wilfred Rodriguez MD 10/27/2021 21:11:18
--- NOTE | 2021-10-24 09:11 | XR_ITS ---
PROCEDURE INFORMATION: Exam: XR Chest Exam date and time: 10/24/2021 9:11 AM Age: 81 years old Clinical indication: Dyspnea and shortness of breath TECHNIQUE: Imaging protocol: XR of the chest. Views: 1 view. COMPARISON: CR XR CHEST 2V 04/26/2019 5:51 PM FINDINGS: Lungs: Bilateral airspace opacities. Pleural spaces: Unremarkable. No pleural effusion. No pneumothorax. Heart/Mediastinum: Unremarkable. No cardiomegaly. Bones/joints: Unremarkable. IMPRESSION: Multilobar pneumonia.
[2021-10-24 09:20] VITALS: PULSE 95; PULSE 97
--- NOTE | 2021-10-24 09:20 | ECG_ITS ---
APPROVED REPORT Exam: Resting ECG HR:103 bpm ECG Measurements Heart Rate 103 AXES SC 233 P 75 QRSd 128 QRS 89 QT 343 T 41 QTc 402 Conclusion ELECTRONIC VENTRICULAR PACEMAKER ABNORMAL RHYTHM ECG INTERPRETATION BASED ON A DEFAULT AGE OF 40 YEARS UNCONFIRMED REPORT Electronically signed by : Wilfred Rodriguez MD 10/27/2021 21:11:03
--- NOTE | 2021-10-24 09:20 | PC.NURSE ---
2nd EKG done
--- NOTE | 2021-10-24 09:23 | PC.NURSE ---
Dr. Hazel was sent EKG via STEMI phone. Awaiting response
--- NOTE | 2021-10-24 09:25 | PC.NURSE ---
Dr. Hazel called back and spoke with Dr. Sanford at this time.
[2021-10-24 09:55] LABS: Chloride 104 mmol/L (98-107); Potassium 3.8 mmoL/L (3.5-5.1); Sodium 134 mmol/L (136-145)
[2021-10-24 09:58] LABS: Alanine Aminotransferase 21 U/L (12-78); Albumin Level 3.9 g/dl (3.5-5.0); Alkaline Phosphatase 89 U/L (38-126); Anion Gap 9.8 mEq/L (5-15); Aspartate Amino Transferase 47 U/L (17-59); Bilirubin,Total 0.4 mg/dl (0.2-1.3); Blood Urea Nitrogen 15 mg/dl (9-20); Calcium 8.1 mg/dl (8.4-10.2); Carbon Dioxide 24 mmol/L (22.0-30.0); Creatinine Clearance Estimated 85 mL/min (50-200); Estimated Glomerular Filt Rate 72 ml/min (>60); GFR (African American) 87 ML/MIN (>60); Globulin 4.1 g/dL (1.3-3.2); Glucose 122 mg/dl (74-100)
[2021-10-24 09:59] LABS: Coronavirus 19, PCR Not Detected (NotDetected); Influenza A, PCR Not Detected (NotDetected); Influenza B, PCR Not Detected (NotDetected)
[2021-10-24 10:00] VITALS: BP 136/81; PULSE 105; RESP 30; TEMP 36.4; O2SAT 98
--- NOTE | 2021-10-24 10:00 | PC.NURSE ---
To landscaping and groundskeeping laborer
--- NOTE | 2021-10-24 10:00 | PC.NURSE ---
Assisted nurse in getting patient to the Boring Machine Set Up Operator.
--- NOTE | 2021-10-24 10:05 | HMH.EDGENADL ---
ED Disposition Clinical Impression: STEMI (ST elevation myocardial infarction) Disposition: Still a Patient Condition on Discharge: Serious - Critical Care Critical Care Time: Yes Attestation: On 10/24/21, the high probability of a clinically significant, sudden or life threatening deterioration of the following system(s) required my full and direct attention, intervention and personal management. The time I documented below is in addition to time spent performing reported procedures but includes the following listed in this critical care notation. Total Critical Care Time: 30 Vital system(s) involved:: Circulatory Failure My critical care processes included: Assessment & monitoring of V/S, Initial and Re-exams, Data Review/Interpretation, Coordinating Care, Medication Orders and management, Documentation Medical Decision Making - Medical Records Medical records reviewed: Yes: I reviewed the patient's medical records. - Sergio Inquiry Pt receiving controlled substance: No Vital Signs: 10/24/21 09:03 10/24/21 09:20 10/24/21 10:00 Temperature 97.6 F 97.6 F Temperature Source Axillary Pulse Rate 95 H 105 H Pulse Rate [Right Radial] 102 H Respiratory Rate 22 30 H Blood Pressure 136/81 Blood Pressure [Right Arm] 146/93 H Blood Pressure Mean [Right Arm] 110 Blood Pressure Source [Right Arm] Automatic Cuff Blood Pressure Position [Right Arm] Sitting 02 Sat by Pulse Oximetry 98 Oxygen Delivery Method Room Air Nasal Cannula Oxygen Flow Rate (LPM) 2 - Lab Data Lab results reviewed: Yes: I reviewed the patient's lab results. Lab Results 10/24/21 09:12: VBG pH 7.33, VBG pCO2 43.5, VBG pO2 45.6 H, VBG HCO3 22.4 L, VBG Total CO2 23.8, VBG O2 Saturation 76.1 H, VBG Base Excess -3.5 L 10/24/21 09:35: WBC 6.6, RBC 3.67 L, Hgb 9.2 L, Hct 31.1 L, MCV 84.9, MCH 25.1 L, MCHC 29.6 L, RDW 17.9 H, Plt Count 477 H, MPV 8.3, Neut % (Auto) 60.7, Lymph % (Auto) 22.8, [place] % (Auto) 5.9, Eos % (Auto) 9.9, Baso % (Auto) 0.7, Neut # (Auto) 4.0, Lymph # (Auto) 1.5, [place] # (Auto) 0.4, Eos # (Auto) 0.7 H, Baso # (Auto) 0.1 10/24/21 09:35: Sodium 134 L, Potassium 3.8, Chloride 104, Carbon Dioxide 24, Anion Gap 9.8, BUN 15, Creatinine 1.00, Estimated Creat Clear 85, Estimated GFR 72, Est GFR ( Amer) 87, Glucose 122 H, Calcium 8.1 L, Total Bilirubin 0.4, AST 47, ALT 21, Alkaline Phosphatase 89, Troponin I 5.11 H, Total Protein 8.0, Albumin 3.9, Globulin 4.1 H, Albumin/Globulin Ratio 1.0 L 10/24/21 09:35: Lactate 2.0 10/24/21 09:37: SARS-CoV-2 (PCR) Not detected, Influenza A Untype (PCR) Not detected, Influenza Type B (PCR) Not detected Result diagrams: 10/24/21 09:35 10/24/21 09:35 Orders (Tests/Meds): ED MEDICATIONS Generic Name Dose Route Start Last Admin Trade Name Freq PRN Reason Stop Dose Admin Acetaminophen 650 mg 10/24/21 11:30 Acetaminophen 325mg Tab PO 11/23/21 11:29 Q4HP PRN Fever or Mild Pain Aspirin 81 mg 10/25/21 09:00 Aspirin 81mg Chewable Tablet PO 11/24/21 08:59 DAILY [facility] Atorvastatin Calcium 40 mg 10/24/21 21:00 Atorvastatin 40mg Tablet PO 11/23/21 20:59 HS [facility] Clopidogrel Bisulfate 75 mg 10/25/21 09:00 Clopidogrel 75mg Tab PO 11/24/21 08:59 DAILY [facility] Fentanyl Citrate 50 mcg 10/24/21 11:30 Fentanyl 250mcg/5ml Vial IV 10/25/21 09:54 Q3MINP PRN Moderate to Severe Pain Fentanyl Citrate 25 mcg 10/24/21 11:30 Fentanyl 100mcg/2ml Vial IV 10/25/21 09:54 Q3MINP PRN Moderate to Severe Pain Fentanyl Citrate 50 mcg 10/24/21 11:30 Fentanyl 100mcg/2ml Vial IV 10/25/21 09:54 Q3MINP PRN Moderate to Severe Pain Fentanyl Citrate 25 mcg 10/24/21 11:30 Fentanyl 250mcg/5ml Vial IV 10/25/21 09:54 Q3MINP PRN Moderate to Severe Pain Flumazenil 0.2 mg 10/24/21 11:30 Flumazenil 0.1mg/Ml 5ml Vial IV 10/24/21 23:00 NEEDED PRN Sedation Heparin Sodium (Porcine) 10,000 unit 02
[2021-10-24 10:06] LABS: Basophils # 0.1 K/mm3 (0-0.2); Basophils % 0.7 % (0.1-2.0); Eosinophils # 0.7 K/mm3 (0.0-0.4); Eosinophils % 9.9 % (0.1-12.0); Hematocrit 31.1 % (42.0-52.0); Hemoglobin 9.2 g/dL (14.1-18.0); Lymphocytes # 1.5 K/mm3 (0.7-4.5); Lymphocytes % 22.8 % (10-50); Mean Corpuscular HGB Conc 29.6 g/dL (31.8-35.4); Mean Corpuscular Hemoglobin 25.1 pg (27.0-31.2); Mean Corpuscular Volume 84.9 fl (80-94); Mean Platelet Volume 8.3 fl (7.4-10.4); Monocytes # 0.4 K/mm3 (0.1-1.0); Monocytes % 5.9 % (1.7-9.3); Neutrophils % 60.7 % (37.0-80.0); Platelet Count 477 K/mm3 (142-424); Red Blood Count 3.67 M/mm3 (4.60-6.20); Red Cell Distribution Width 17.9 % (11.5-17.5); White Blood Count 6.6 K/mm3 (4.8-10.8)
--- NOTE | 2021-10-24 10:06 | PC.NURSE ---
has been paged.
[2021-10-24 10:14] LABS: Troponin I 5.11 ng/ml (0.00-0.034)
--- NOTE | 2021-10-24 10:16 | PC.NURSE ---
Marisol from lab reported a critical troponin of 5.11 MD notified
[2021-10-24 10:44] LABS: VBG Base Excess -3.5 mmol/L (-2.4-2.3); VBG HCO3 22.4 mmol/L (23-30); VBG Oxygen Saturation 76.1 % (50-70); VBG PCO2 43.5 mmol/L (35-51); VBG PH 7.33 mmol/L (7.31-7.41); VBG PO2 45.6 mmol/L (28-40); VBG Total CO2 23.8 mmol/L (23-27)
--- NOTE | 2021-10-24 13:06 | PC.NURSE ---
928 - notified of stemi alert, per ER MD Dr Hazel on his way; numerical control machine operator notified, Hali and returned call [phone] - Miladys returned call [phone] - Consent obtained from pts son )KP
--- NOTE | 2021-10-24 13:08 | PC.NURSE ---
Addendum entered by Lily Batista, RN 10/24/21 13:12: Pt transported to canvas shop laborer by myself and Denisse (not Deana) Original Note: 928 - notified of stemi alert, per ER MD Dr Hazel on his way; wreath machine operator notified, Aleksandr returned call [phone] - Miladys returned call [phone] - Consent obtained from pts son (POA) [phone] - notified by canvas shop laborer they are ready for patient, pt transported to canvas shop laborer by myself and Deana
--- NOTE | 2021-10-24 13:57 | SUR.OPER ---
ROSALINDA contacted, spoke to [employer] and stated to release,
--- NOTE | 2021-10-24 13:57 | SUR.OPER ---
Notified [facility] home per family request, stated they would be on their way.
--- NOTE | 2021-10-24 14:14 | SUR.OPER ---
Spoke to Derian Manley and he stated its okay to release the body to the home
[2021-10-24 14:23] LABS: ABG Base Excess 6.3 mmol/L (-2.4-2.3); ABG HCO3 28.7 mmhg (22.0-26.0); ABG Oxygen Saturation 100 % (90-100); ABG PCO2 33.5 mmhg (35.0-45.0); ABG PH 7.55 mmol/L (7.35-7.45); ABG PO2 320.8 mmhg (80-100); ABG TCO2 29.7 mmhg (23-27); Oxygen 100% %
[2021-10-24 14:52] LABS: CATHL Activated Clotting Time 262 SEC (74-125)
[2021-10-24 14:53] LABS: CATHL Activated Clotting Time > 400 SEC (74-125)
--- NOTE | 2021-10-24 15:20 | SUR.PHASEII ---
PT RELEASED TO HOME
== END 2021-10-24 15:20 | disposition expired ==
LOC: ER 09:05 → CATHLAB 10:24 → 2ND 11:25
PROVIDERS: Emergency Provider Student in an Organized Health Care Education/Training Program; PCP Nurse Practitioner Family; Visit Provider Internal Medicine
DX: I21.02 ST elevation (STEMI) myocardial infarction involving left anterior descending coronary artery (principal); E11.9 Type 2 diabetes mellitus without complications; I10 Essential (primary) hypertension; J44.9 Chronic obstructive pulmonary disease, unspecified; F17.210 Nicotine dependence, cigarettes, uncomplicated; Z79.899 Other long term (current) drug therapy; I46.2 Cardiac arrest due to underlying cardiac condition; I25.10 Atherosclerotic heart disease of native coronary artery without angina pectoris; J96.00 Acute respiratory failure, unspecified whether with hypoxia or hypercapnia; R57.0 Cardiogenic shock; Z20.822 Contact with and (suspected) exposure to COVID-19
CPT/HCPCS: 33967; 71045; 80053; 82803; 83605; 84484; 85025; 85347; 92928; 92941; 93005; 93458; 94002; 96365; 96375; 99152; 99153; 99284; C1725; C1769; C1876; C1894; C9600; C9606; C9803; J1644; Q9967; U0003; U0005